=== PATIENT | female | born 1960 | race Caucasian/White ===

== ENCOUNTER 2017-08-14 01:01 | Emergency (ER) | payer MEDICARE ==
--- NOTE | 2017-08-14 01:33 | ERPHSYRPT ---
- History of Present Illness Time Seen by Provider: 08/14/17 01:22 Source: patient Exam Limitations: no limitations Patient Subjective Stated Complaint: per ems and pt, pt has passed out approx 3 times tonight. states she has not been feeling well and has not been eating or drinking well. for the past few days. states she has increased dizziness when standing up. c/o pain in her lt leg and hip from fall when passing out tonight. Triage Nursing Assessment: pt alert and oreinted, asnwers questions approp. pt arive per ambulance. total assist of 3 to transfer to stretcher. skin, cool and dry. respirations nonlabored with lungs cta. pupils equal and reactive. bilat upper and lower ext strength wnl. pt c/o pain in lt hip and leg, no bruising, shortening or rotation noted. Physician History: 57 y/o female with history of TIA currently on plavix brought in by ambulance for 3 syncopal episodes that occurred this morning. The patient states that she felt dizzy after getting up from a seated position and fell to the ground. The last time she hit her right thigh. Pt is not certain if she hit her head. Her son's believe that she may have had seizure episode. Pt admits to feeling weak lately, eating and drinking less as well as having nausea, cough, runny nose and sore throat. Pt describes the leg pain as sharp, constant, 7/10, worse with movement and pt has not taken any pain meds. Pt also admits to having left sided chest pain. Witnessed: by family Prior Episodes: multiple episodes today Timing/Duration: today Precipitating Factors: blurred vision, lightheadedness Context: standing Loss of Consciousness: unsure Charcter of event(s): collapsed Allergies/Adverse Reactions: ketorolac tromethamine [From Toradol] Adverse Reaction (Intermediate, Verified 08/14/17 01:16) Vomiting sulfamethoxazole [From Bactrim] Adverse Reaction (Intermediate, Verified 01:16) Blisters trimethoprim [From Bactrim] Adverse Reaction (Intermediate, Verified 08/14/17 01 :16) Blisters enoxaparin sodium [From Lovenox] Adverse Reaction (Verified 08/14/17 01:16) Hx Tetanus, Diphtheria Vaccination/Date Given: Yes Hx Influenza Vaccination/Date Given: No Hx Pneumococcal Vaccination/Date Given: No Immunizations Up to Date: Yes - Past Medical History Pertinent Past Medical History: Yes Neurological History: TIA ENT History: No Pertinent History Cardiac History: Angina, Coronary Artery Disease, Myocardial Infarction (SD), Peripheral Vascular Disease Respiratory History: No Pertinent History Endocrine Medical History: Diabetes Type I Musculoskeletal History: Arthritis GI Medical History: Gallbladder Disease History: No Pertinent History Psycho-Social History: Anxiety, Depression Female Reproductive Disorders: No Pertinent History - Past Surgical History Past Surgical History: Yes Neuro Surgical History: No Pertinent History Cardiac: CABG, Cardiac Stent Respiratory: No Pertinent History Gastrointestinal: Cholecystectomy Genitourinary: No Pertinent History Musculoskeletal: Other Female Surgical History: Section Other Surgical History: ROTATOR CUFF SURGERY, T&A - Social History Smoking Status: Former smoker Exposure to second hand smoke: Yes Drug Use: none Patient Lives Alone: No - Review of Systems Constitutional: Weakness, No Fever, No Chills Eyes: Vision Changes Ears, Nose, & Throat: No Symptoms Respiratory: Cough, No Dyspnea Cardiac: Chest Pain, Syncope, No Edema Abdominal/Gastrointestinal: Nausea, No Abdominal Pain, No Vomiting, No Diarrhea Genitourinary Symptoms: No Dysuria, No Frequency, No Hematuria Musculoskeletal: Myalgias, No Back Pain, No Neck Pain Skin: No Rash Neurological: Dizziness, No Focal Weakness, No Headache, No Sensory Changes, No Speech Changes Psychological: No Symptoms Endocrine: No Symptoms All Other Systems: Reviewed and Negative Physical Exam - Nursing Vital Signs Nursing Vital Signs: Initial Vital Signs Temperature 97.7 F 08/14/17 01:03 Pulse Rate 69 08/14/17 01:03 Respiratory Rate 18 08/14/17 01:03 Blood Pressure 113/51 08/14/17 01:03 O2 Sat by Pulse Oximetry 100 08/14/17 01:03 Pain Scale Pain Intensity 4 - [place] Coma Scale Best Eye Response ([place]): (4) open spontaneously Best Verbal Response ([place]): (5) oriented Best Motor Response ([place]): (6) obeys commands [place] Total: 15 - Physical Exam General Appearance: no apparent distress, alert Eye Exam: bilateral eye: PERRL, EOMI Ears, Nose, Throat Exam: normal ENT inspection, pharynx normal, moist mucous membranes Neck Exam: normal inspection, non-tender, supple, full range of motion Respiratory: normal breath sounds, lungs clear, No chest tenderness, No respiratory distress Cardiovascular: regular rate/rhythm, normal heart sounds, normal peripheral pulses, capillary refill <2 sec, No murmur, No pulse deficit Gastrointestinal: soft, normal bowel sounds, No tenderness, No distention, No mass Back Exam: normal inspection, normal range of motion, No CVA tenderness, No vertebral tenderness Extremity Exam: normal inspection, normal range of motion, pelvis stable, No tenderness Mental Status: alert, 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 x 3, 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 Exam: normal hearing, normal speech, PERRL, No facial droop Coordination/Gait: normal finger to nose Motor/Sensory: no sensory deficit, no pronator drift, weak motor strength LLE Skin Exam: normal color, warm, dry, No rash SpO2: 100 Oxygen Delivery: Nasal Cannula - Course Nursing assessment & vital signs reviewed: Yes EKG Interpreted by Me: RATE, NORMAL AXIS, NORMAL INTERVALS, NORMAL QRS, NORMAL ST-T Ordered Tests: Active Orders 24 hr Category Date Time Status Accucheck STAT Care 08/14/17 01:35 Active Contract Administrator STAT Care 08/14/17 01:36 Active EKG-ER Only STAT Care 08/14/17 01:35 Active Rouse [Catheter-[place] Rouse] STAT Care 08/14/17 04:32 Active IV Insertion STAT Care 08/14/17 01:35 Active Orthostatic Vital Signs STAT Care 08/14/17 01:35 Active CHEST 1 VIEW (PORTABLE) Stat Exams 08/14/17 01:[address] ANGIOGRAPHY NECK [CT] Stat Exams 08/14/17 03:05 Taken CTA HEAD W AND/OR WO CONTRAST [CT] Stat Exams 08/14/17 03:07 Taken FEMUR Stat Exams 08/14/17 03:10 Taken HEAD WITHOUT CONTRAST [CT] Stat Exams 08/14/17 01:36 Taken HIP UNI (2V) INCL PEL IF DONE Stat Exams 08/14/17 03:10 Taken CBC W DIFF Stat Lab 08/14/17 01:57 Completed CMP Stat Lab 08/14/17 01:57 Completed Manual Differential NC Stat Lab 08/14/17 01:57 Completed PROTIME WITH INR Stat Lab 08/14/17 01:57 Completed PTT Stat Lab 08/14/17 01:57 Completed TROPONIN Q3H Lab 08/14/17 01:57 Completed TROPONIN Q3H Lab 08/14/17 04:55 Completed TROPONIN Q3H Lab 08/14/17 07:45 Ordered TROPONIN Q3H Lab 08/14/17 10:45 Ordered TROPONIN Q3H Lab 08/14/17 13:45 Ordered UA W/RFX UR CULTURE Stat Lab 08/14/17 05:15 Completed Medication Summary Generic Name Dose Route Start Last Admin Trade Name Clare PRN Reason Stop Dose Admin Sodium Chloride 1,000 mls @ 100 mls/hr 08/14/17 01:45 08/14/17 01:58 Sodium Chloride 0.9% 1000 Ml IV 09/13/17 01:44 100 mls/hr .Q10H CARLOS Administration Discontinued Medications Generic Name Dose Route Start Last Admin Trade Name Clare PRN Reason Stop Dose Admin Hydromorphone HCl 1 mg 08/14/17 04:32 08/14/17 04:37 Hydromorphone 1 Mg/Ml Ampule IV 08/14/17 04:33 1 mg STAT ONE Administration Hydromorphone HCl Confirm 08/14/17 04:36 Hydromorphone 1 Mg/Ml Ampule Administered 08/14/17 04:37 Dose 1 mg .ROUTE .STK-MED ONE Insulin Human Regular 5 unit 08/14/17 04:32 08/14/17 04:37 Novolin R IV 08/14/17 04:33 5 unit STAT ONE Administration Insulin Human Regular Confirm 08/14/17 04:36 Novolin R Administered 08/14/17 04:37 Dose 5 unit .ROUTE .STK-MED ONE Morphine Sulfate 4 mg 08/14/17 01:37 08/14/17 01:58 Morphine Sulfate 4 Mg Inj IV 08/14/17 01:38 4 mg STAT ONE Administration Morphine Sulfate Confirm 08/14/17 01:55 Morphine Sulfate 4 Mg Inj Administered 08/14/17 01:56 Dose 4 mg .ROUTE .STK-MED ONE Morphine Sulfate 4 mg 08/14/17 03:07 08/14/17 03:18 Morphine Sulfate 4 Mg Inj IV 08/14/17 03:08 4 mg STAT ONE Administration Morphine Sulfate Confirm 08/14/17 03:15 Morphine Sulfate 4 Mg Inj Administered 08/14/17 03:16 Dose 4 mg .ROUTE .STK-MED ONE Ondansetron HCl 4 mg 08/14/17 01:37 08/14/17 01:59 Zofran 4 Mg/2 Ml Vial IV 08/14/17 01:38 4 mg STAT ONE Administration Ondansetron HCl Confirm 08/14/17 01:54 Zofran 4 Mg/2 Ml Vial Administered 08/14/17 01:55 Dose 4 mg .ROUTE .STK-MED ONE Oseltamivir Phosphate 75 mg 08/14/17 03:07 08/14/17 03:19 Tamiflu 75mg Capsule PO 08/14/17 03:08 75 mg STAT ONE Administration Oseltamivir Phosphate Confirm 08/14/17 03:15 Tamiflu 75mg Capsule Administered 08/14/17 03:16 Dose 75 mg PO .STK-MED ONE Lab/Rad Data: Laboratory Result Diagrams 08/14/17 01:57 08/14/17 01:57 Laboratory Results 08/14/17 08/14/17 08/14/17 Range/Units 05:15 04:55 01:57 WBC (4.0-10.5) K/mm3 RBC (4.1-5.4) M/mm3 Hgb (12.0-16.0) gm/dl Hct (35-47) % MCV (78-100) fl MCH (26-32) pg MCHC (32-36) g/dl RDW (11.5-14.0) % Plt Count (150-450) K/mm3 MPV (6-9.5) fl Segmented Neutrophils (36.0-66.0) % Band Neutrophils (0.0-2.0) % Lymphocytes (Manual) (24-44) % Monocytes (Manual) (0.0-12.0) % Differential Comment Atypical Lymphocytes % Platelet Estimate (NORMAL) INR (0.8-3.0) APTT (25.3-37.0) SECONDS Sodium (136-145) mEq/L Potassium (3.5-5.1) mEq/L Chloride (98-107) mEq/L Carbon Dioxide (21-32) mEq/L Anion Gap (5-15) MEQ/L BUN (9-20) mg/dL Creatinine (0.55-1.30) mg/dl Estimated GFR ML/MIN Glucose (70-110) MG/DL Calcium (8.5-10.1) mg/dL Total Bilirubin (0.2-1.0) mg/dL AST (15-37) U/L ALT (12-78) U/L Alkaline Phosphatase (46-116) U/L Troponin I < 0.017 (0.000-0.056) ng/ml Serum Total Protein (6.4-8.2) gm/dL Albumin (3.4-5.0) g/dL Ur Collection Type CLEAN CATCH Urine Color YELLOW (YELLOW) Urine Appearance CLEAR (CLEAR) Urine pH 5.0 (5-6) Ur Specific [place] 1.010 (1.005-1.025) Urine Protein NEGATIVE (Negative) Urine Ketones SMALL (NEGATIVE) Urine Blood NEGATIVE (0-5) Sudhakar/ul Urine Nitrite NEGATIVE (NEGATIVE) Urine Bilirubin NEGATIVE (NEGATIVE) Urine Urobilinogen NORMAL (0-1) mg/dL Ur Leukocyte Esterase NEGATIVE (NEGATIVE) Urine Culture Reflexed NO (NO) Urine Glucose 1000 (NEGATIVE) mg/dL Influenza Type A Ag POSITIVE (NEGATIVE) Influenza Type B Ag NEGATIVE (NEGATIVE) RSV (PCR) NEGATIVE (Negative) Specimen Received 08/14/2017 0520 08/14/17 08/14/17 08/14/17 Range/Units 01:57 01:57 01:57 WBC (4.0-10.5) K/mm3 RBC (4.1-5.4) M/mm3 Hgb (12.0-16.0) gm/dl Hct (35-47) % MCV (78-100) fl MCH (26-32) pg MCHC (32-36) g/dl RDW (11.5-14.0) % Plt Count (150-450) K/mm3 MPV (6-9.5) fl Segmented Neutrophils (36.0-66.0) % Band Neutrophils (0.0-2.0) % Lymphocytes (Manual) (24-44) % Monocytes (Manual) (0.0-12.0) % Differential Comment Atypical Lymphocytes % Platelet Estimate (NORMAL) INR 1.12 (0.8-3.0) APTT 34.4 (25.3-37.0) SECONDS Sodium 132 L (136-145) mEq/L Potassium 4.1 (3.5-5.1) mEq/L Chloride 98 (98-107) mEq/L Carbon Dioxide 26.1 (21-32) mEq/L Anion Gap 11.7 (5-15) MEQ/L BUN 20 (9-20) mg/dL Creatinine 1.05 (0.55-1.30) mg/dl Estimated GFR 58 ML/MIN Glucose 391 H (70-110) MG/DL Calcium 7.8 L (8.5-10.1) mg/dL Total Bilirubin 0.30 (0.2-1.0) mg/dL AST 152 H (15-37) U/L ALT 195 H (12-78) U/L Alkaline Phosphatase 163 H (46-116) U/L Troponin I < 0.017 (0.000-0.056) ng/ml Serum Total Protein 5.9 L (6.4-8.2) gm/dL Albumin 2.9 L (3.4-5.0) g/dL Ur Collection Type Urine Color (YELLOW) Urine Appearance (CLEAR) Urine pH (5-6) Ur Specific [place] (1.005-1.025) Urine Protein (Negative) Urine Ketones (NEGATIVE) Urine Blood (0-5) Sudhakar/ul Urine Nitrite (NEGATIVE) Urine Bilirubin (NEGATIVE) Urine Urobilinogen (0-1) mg/dL Ur Leukocyte Esterase (NEGATIVE) Urine Culture Reflexed (NO) Urine Glucose (NEGATIVE) mg/dL Influenza Type A Ag (NEGATIVE) Influenza Type B Ag (NEGATIVE) RSV (PCR) (Negative) Specimen Received 08/14/17 Range/Units 01:57 WBC 2.0 L (4.0-10.5) K/mm3 RBC 3.79 L (4.1-5.4) M/mm3 Hgb 11.2 L (12.0-16.0) gm/dl Hct 34.5 L (35-47) % MCV 91.0 (78-100) fl MCH 29.5 (26-32) pg MCHC 32.5 (32-36) g/dl RDW 16.6 H (11.5-14.0) % Plt Count 89 L (150-450) K/mm3 MPV 10.1 H (6-9.5) fl Segmented Neutrophils 64 (36.0-66.0) % Band Neutrophils 11 H (0.0-2.0) % Lymphocytes (Manual) 16 L (24-44) % Monocytes (Manual) 7 (0.0-12.0) % Differential Comment NORMAL Atypical Lymphocytes 2 % Platelet Estimate DECREASED (NORMAL) INR (0.8-3.0) APTT (25.3-37.0) SECONDS Sodium (136-145) mEq/L Potassium (3.5-5.1) mEq/L Chloride (98-107) mEq/L Carbon Dioxide (21-32) mEq/L Anion Gap (5-15) MEQ/L BUN (9-20) mg/dL Creatinine (0.55-1.30) mg/dl Estimated GFR ML/MIN Glucose (70-110) MG/DL Calcium (8.5-10.1) mg/dL Total Bilirubin (0.2-1.0) mg/dL AST (15-37) U/L ALT (12-78) U/L Alkaline Phosphatase (46-116) U/L Troponin I (0.000-0.056) ng/ml Serum Total Protein (6.4-8.2) gm/dL Albumin (3.4-5.0) g/dL Ur Collection Type Urine Color (YELLOW) Urine Appearance (CLEAR) Urine pH (5-6) Ur Specific [place] (1.005-1.025) Urine Protein (Negative) Urine Ketones (NEGATIVE) Urine Blood (0-5) Sudhakar/ul Urine Nitrite (NEGATIVE) Urine Bilirubin (NEGATIVE) Urine Urobilinogen (0-1) mg/dL Ur Leukocyte Esterase (NEGATIVE) Urine Culture Reflexed (NO) Urine Glucose (NEGATIVE) mg/dL Influenza Type A Ag (NEGATIVE) Influenza Type B Ag (NEGATIVE) RSV (PCR) (Negative) Specimen Received - Progress Progress: improved Progress Note: 08/14/17 05:39 The patient has a left femoral subcapital fracture. The CT scan head w/o contrast is negative and the CTA head and neck does not show any acute findings. The patient has low white count, low platelet and elevation in AST/ ALT and alk phos. Pt was also given NS fluids and regular insulin for elevated blood glucose of 389. Pt is influenza A positive and was given a dose of tamiflu. Since the patient will need to be cleared by cardiology, patient will need orthopedic evaluation. Pt has been accepted by ER physician, Dr Viera. 08/14/17 05:48 - Departure Time of Disposition: 05:49 Departure Disposition: Transfer Clinical Impression: Influenza A Subcapital fracture of femur Qualifiers: Encounter type: initial encounter Fracture type: closed Laterality: left Qualified Code(s): S72.012A - Unspecified intracapsular fracture of left femur, initial encounter for closed fracture Syncope Qualifiers: Syncope type: unspecified Qualified Code(s): R55 - Syncope and collapse Condition: Fair Critical Care Time: Yes Critical Care Time(excluding separately billable procedures): 75-104 minutes Referrals: DELORES CORREIA MD [Primary Care Provider] -
[2017-08-14] MEDS ORDERED: Zofran 4 MG/2 ML VIAL ONE (01:54)
[2017-08-14] MEDS ORDERED: MORPHINE SULFATE 4 MG INJ ONE ×2 (01:55→03:15)
[2017-08-14] MEDS ORDERED: Sodium Chloride 0.9% 1000 ML 1,000 ML ONE (01:55)
[2017-08-14] MEDS: MORPHINE SULFATE 4 MG INJ IV ONE ×2 (01:58→03:18)
[2017-08-14] MEDS: Sodium Chloride 0.9% 1000 ML 1,000 ML IV SCH (01:58)
[2017-08-14] MEDS: Zofran 4 MG/2 ML VIAL IV ONE (01:59)
[2017-08-14 02:02] LABS: Granulocyte Absolute (ANC) 1.36 (1.4-6.9); Hematocrit 34.5 % (35-47); Hemoglobin 11.2 gm/dl (12.0-16.0); Mean Corpuscular Hgb Concent. 32.5 g/dl (32-36); Mean Platelet Volume 10.1 fl (6-9.5); Platelet Count 89 K/mm3 (150-450); Red Blood Count 3.79 M/mm3 (4.1-5.4); Red Cell Distribution Width 16.6 % (11.5-14.0)
[2017-08-14 02:08] LABS: Mean Corpuscular Hemoglobin 29.5 pg (26-32)
[2017-08-14 02:29] LABS: ATYPICAL LYMPHS 2 %; BAND 11 % (0.0-2.0); Lymphocytes 16 % (24-44); Monocyte 7 % (0.0-12.0); Neutrophils 64 % (36.0-66.0); Total Cells Counted 100
[2017-08-14 02:30] LABS: Platelet Estimate DECREASED (NORMAL)
[2017-08-14 02:33] LABS: ALBUMIN 2.9 g/dL (3.4-5.0); ANION GAP 11.7 MEQ/L (5-15); BILIRUBIN,TOTAL 0.3 mg/dL (0.2-1.0); Calcium 7.8 mg/dL (8.5-10.1); Carbon Dioxide 26.1 mEq/L (21-32); Creatinine 1 1.05 mg/dl (0.55-1.30); Potassium 4.1 mEq/L (3.5-5.1); Total Protein 5.9 gm/dL (6.4-8.2)
[2017-08-14 02:59] LABS: INR 1.12 (0.8-3.0)
[2017-08-14 03:02] LABS: PTT 34.4 SECONDS (25.3-37.0)
[2017-08-14 03:04] LABS: INFLUENZA A POSITIVE (NEGATIVE); INFLUENZA B NEGATIVE (NEGATIVE); RESPIRATORY SYNCTIAL VIRUS NEGATIVE (Negative)
[2017-08-14] MEDS ORDERED: Tamiflu 75MG Capsule PO ONE (03:15)
[2017-08-14] MEDS: Tamiflu 75MG Capsule PO ONE (03:19)
[2017-08-14] MEDS ORDERED: NovoLIN R ONE (04:36)
[2017-08-14] MEDS ORDERED: Hydromorphone 1 mg/ml Ampule ONE ×2 (04:36→06:40)
[2017-08-14] MEDS: Hydromorphone 1 mg/ml Ampule IV ONE ×2 (04:37→06:42)
[2017-08-14] MEDS: NovoLIN R IV ONE (04:37)
[2017-08-14 05:20] LABS: Appearance CLEAR (CLEAR); Bilirubin NEGATIVE (NEGATIVE); Blood NEGATIVE Ery/ul (0-5); Glucose 1000 mg/dL (NEGATIVE); Ketones SMALL (NEGATIVE); Leukocyte Esterase NEGATIVE (NEGATIVE); Nitrite NEGATIVE (NEGATIVE); Protein,Urine Dip NEGATIVE (Negative); Urobilinogen NORMAL mg/dL (0-1)
[2017-08-14 06:32] VITALS: O2SAT 99
[2017-08-14 07:34] VITALS: BP 122/56; PULSE 91
--- NOTE | 2017-08-14 08:46 | XRAY ---
Indication: Chest pain. Fall following syncope. Comparison: January 10, 2015. AP chest remains clear. Heart is not enlarged again demonstrating previous CABG surgery. Normal vascularity. Bony thorax intact again with mild osteopenia, minimal degenerative changes, and distal right clavicle resection. Impression: Stable nonacute chest with chronic features.
--- NOTE | 2017-08-14 09:04 | XRAY ---
Indication: Pain following fall. Comparison: None 2 views of the left hip demonstrates mild osteopenia, single vascular clip, and scattered vascular calcifications. Femur demonstrates lateral subcapital cortical deformity concerning for fracture of uncertain chronicity. No other bony, articular, or soft tissue abnormalities. Comment: Preliminary interpretation was made by [facility]. No critical discrepancy.
--- NOTE | 2017-08-14 09:06 | XRAY ---
Indication: Pain following fall. Comparison: None 2 views of the left femur demonstrates mild osteopenia, scattered vascular clip, and scattered vascular calcifications. Lateral subcapital cortical deformity concerning for fracture of uncertain chronicity. No other bony, articular, or soft tissue abnormalities. Comment: Preliminary interpretation was made by [facility]. No critical discrepancy.
--- NOTE | 2017-08-14 09:06 | XRAY ---
Indication: Left head injury following fall. Syncopal episode 2. Seizure. Dizziness. Multiple contiguous axial images obtained through the head without contrast. Comparison: None Normal-appearing brain parenchyma, ventricles, and bony calvarium. Visualized paranasal sinuses and mastoid air cells are clear. Impression: Normal CT head without contrast exam. Comment: Preliminary interpretation was made by [facility]. No discrepancy. CTDI 51.98
--- NOTE | 2017-08-14 09:11 | XRAY ---
Indication: Syncopal episode 2. Seizure. Dizziness. Conventional contrast enhanced CTA neck was performed using 95 cc Isovue 370 contrast. Two-dimensional sagittal and coronal reformatted images obtained. Comparison: None Visualized aortic arch is normal with normal branching right brachiocephalic, left common carotid, and left subclavian arteries. Left and right common carotid arteries are normal in course and caliber without critical stenosis, obstruction, or AV malformation. Right carotid bulb demonstrates minimal eccentric calcified plaquing. Remaining left carotid bulb and both internal/external carotid arteries are normal in CTA appearance. Vertebral arteries are bilaterally normal in course and caliber without critical stenosis/obstruction, or AV malformation. Venous system and soft tissues including lung apices are unremarkable. Impression: Minimal right carotid bulb calcifications. Remaining CTA neck is negative. Comment: Preliminary interpretation was made by [facility]. No discrepancy. CTDI 83.92
--- NOTE | 2017-08-14 09:16 | XRAY ---
Indication: Syncopal episode 2. Seizure. Dizziness. Conventional contrast enhanced CTA head was performed using 95 cc Isovue 370 contrast. Two-dimensional sagittal and coronal reformatted images obtained. Comparison: None Distal internal carotid arteries are bilaterally symmetric with very minimal calcifications seen in the parasellar segments. No critical stenosis, obstruction, or AV malformation. Normal carotid terminus with normal branching A1 and M1 segments. More distal anterior and middle cerebral arteries are normal in CTA appearance. Basilar artery is normal in CTA appearance with normal branching posterior cerebral and anterior inferior cerebellar arteries bilaterally. There is no abnormal enhancing intra-or extra-axial mass. Venous drainage unremarkable. CT head reported separately. Impression: Minimal bilateral parasellar internal carotid artery calcifications without critical stenosis/obstruction. Remaining CTA head is negative. Comment: Preliminary interpretation was made by [facility]. No critical discrepancy. CTDI 83.92
== END 2017-08-14 07:58 | disposition short-term general hospital (02) ==
LOC: ED 01:01
DX: J09.X2 Influenza due to identified novel influenza A virus with other respiratory manifestations (principal); S72.012A Unspecified intracapsular fracture of left femur, initial encounter for closed fracture; R07.9 Chest pain, unspecified; R55 Syncope and collapse; W08.XXXA Fall from other furniture, initial encounter; Z86.73 Personal history of transient ischemic attack (TIA), and cerebral infarction without residual deficits; I25.2 Old myocardial infarction
CPT/HCPCS: 36415; 51702; 70450; 70496; 70498; 71045; 73502; 73552; 80053; 81002; 82962; 84484; 85025; 85610; 85730; 87631; 93005; 93041; 96360; 96361; 96374; 96375; 96376; 99285; J1170; J2270; J2405; A9270-GY

== ENCOUNTER 2020-09-23 10:43 | Observation (INO) | payer MEDICARE ==
[2020-09-23 13:09] VITALS: O2SAT 100
[2020-09-23 13:49] LABS: INFLUENZA A NEGATIVE (NEGATIVE); INFLUENZA B NEGATIVE (NEGATIVE); RESPIRATORY SYNCTIAL VIRUS NEGATIVE (Negative)
[2020-09-23] MEDS ORDERED: Sodium Chloride 0.9% 1000 ML 1,000 ML IV SCH (14:00)
[2020-09-23] MEDS ORDERED: PHARMACY DOSING REQUEST MC ONE (14:03)
[2020-09-23] MEDS ORDERED: MORPHINE SULFATE 2 MG INJ IV PRN (14:05)
[2020-09-23] MEDS ORDERED: HUMULIN R SQ PRN (14:07)
[2020-09-23 14:48] LABS: Absolute Neutrophil Ct (ANC) 5.83 (1.4-6.9); BASOPHIL % 0.3 % (0.0-0.4); Basophil (Absolute #) 0.02 (0-0.4); Eosinophil % 2.2 % (0.00-5.0); Eosinophil (Absolute #) 0.17 (0-0.5); Hematocrit 39.6 % (35-47); Hemoglobin 12.6 gm/dl (12.0-16.0); Lymphocyte (Absolute #) 1.37 (1.0-4.6); Lymphocytes % 17.8 % (24.0-44.0); Mean Cell Volume 92.7 fl (78-100); Mean Corpuscular Hemoglobin 29.5 pg (26-32); Mean Corpuscular Hgb Concent. 31.8 g/dl (32-36); Mean Platelet Volume 9.7 fl (7.5-11.0); Monocytes % 3.9 % (0.0-12.0); Neutrophil % 75.8 % (36.0-66.0); Platelet Count 213 K/mm3 (150-450); Red Blood Count 4.27 M/mm3 (4.1-5.4); Red Cell Distribution Width 14.5 % (11.5-14.0); White Blood Count 7.7 K/mm3 (4.0-10.5)
[2020-09-23 14:57] LABS: ALBUMIN 4.4 g/dL (3.5-5.0); ALKALINE PHOSPHATASE 133 U/L (38-126); ANION GAP 12.8 MEQ/L (5-15); BLOOD UREA NITROGEN 12 mg/dL (7-17); CHLORIDE 99 mmol/L (98-107); Calcium 9.5 mg/dL (8.4-10.2); Carbon Dioxide 27 mmol/L (22-30); Creatinine 1 0.53 mg/dL (0.52-1.04); EST GLOMERULAR FILTRATION RATE > 60.0 ML/MIN; Glucose 244 mg/dL (74-106); Potassium 4.3 mmol/L (3.5-5.1); SGOT/AST 17 U/L (14-36); SGPT/ALT 11 U/L (0-35); SODIUM 135 mmol/L (137-145); Total Protein 8.5 g/dL (6.3-8.2)
[2020-09-23] MEDS ORDERED: NON-FORMULARY ITEM (Gabapentin [Gabapentin] 800 MG) PO SCH (15:00)
[2020-09-23] MEDS ORDERED: Zosyn 3.375 GM Vial 3.375 GM in Sodium Chloride 100ML MINI-BAG PLUS 100 ML IV SCH (15:00)
[2020-09-23] MEDS ORDERED: Neurontin 400 MG PO SCH (15:00)
--- NOTE | 2020-09-23 15:23 | XRAY ---
Indication: Cough. Comparison: August 14, 2017. PA/lateral chest remains hyperinflated and clear. Heart is not enlarged again with CABG surgery. Bony thorax intact again with mild osteopenia, degenerative changes, and distal right clavicle resection. Impression: Continued nonacute chest with chronic features.
[2020-09-23] MEDS ORDERED: MORPHINE SULFATE 4 MG INJ IV PRN (16:15)
[2020-09-23 16:32] VITALS: BP 146/80; PULSE 104
[2020-09-23] MEDS ORDERED: Ativan 2 MG/1 ML VIAL IV ONE (17:35)
--- NOTE | 2020-09-23 21:59 | XRAY ---
Indication: Bilateral feet/cocaine. Two-dimensional sonogram and color Doppler imaging of the major arteries of the left and right leg was performed. Comparison: None Examination of the right leg demonstrates minimal scattered arteriosclerotic disease in the common femoral, superficial femoral, and popliteal arteries without critical stenosis/obstruction. Visualized posterior tibial and dorsal pedal arteries are attenuated without obstruction. Arterial waveforms are multiphasic throughout the right leg. Right arm brachial pressure is 1:30. Right ankle pressure is 176. Ankle brachial index is 1.23, normal. Examination of the left leg demonstrates minimal scattered disease in the common femoral, superficial femoral, popliteal, posterior tibial, and dorsal pedal arteries without critical stenosis/obstruction. Arterial waveforms are multiphasic throughout the left leg. Left arm brachial pressure is 143. Left ankle pressure is 151. Ankle brachial index is 1.1, normal. Impression: 1. Both legs demonstrates scattered arteriosclerotic disease without critical stenosis/obstruction. 2. Left and right ABIs are normal.
[2020-09-23] MEDS ORDERED: Lantus Insulin SQ SCH (22:00)
[2020-09-23] MEDS ORDERED: INSULIN DEGLUDEC 30 UNIT PO SCH (22:00)
[2020-09-24] MEDS ORDERED: PLAVIX 75 MG Tablet PO SCH (10:00)
[2020-09-24] MEDS ORDERED: Protonix 40MG Tablet PO SCH (10:00)
--- NOTE | 2020-09-27 19:00 | PCM.SSS ---
History of Present Illness - Chief Complaint Chief Complaint: severe pain in left foot for 1 week History of Present Illness: is a 60 year old female admitted with severe bilateral foot pain started 2 weeks ago. c/o redness on both feet. severe pain on light touch - Review of Systems Constitutional: No Fever, No Chills Eyes: No Symptoms Ears, Nose, & Throat: No Symptoms Respiratory: No Cough, No Short Of Breath Cardiac: No Chest Pain, No Edema, No Syncope Abdominal/Gastrointestinal: No Abdominal Pain, No Nausea, No Vomiting, No Diarrhea Genitourinary Symptoms: No Dysuria Musculoskeletal: No Back Pain, No Neck Pain Skin: Cellulitis, No Rash Neurological: No Dizziness, No Focal Weakness, No Sensory Changes Psychological: No Symptoms Endocrine: No Symptoms Hematologic/Lymphatic: No Symptoms Immunological/Allergic: No Symptoms Medications & Allergies Home Medications: Home Medication List Clopidogrel Bisulfate 75 mg [PLAVIX 75 MG Tablet] 75 mg PO DAILY 09/23/20 [History Confirmed 09/23/20] Gabapentin 800 mg PO TID 09/23/20 [History Confirmed 09/23/20] Insulin Aspart [Novolog] 100 unit SQ UD 09/23/20 [History Confirmed 09/23/20] Insulin Degludec [Tresiba Flextouch U-200] 30 units PO HS 09/23/20 [History Confirmed 09/23/20] PANTOPRAZOLE 40 mg Tablet [Protonix 40MG Tablet] 40 mg PO QAM 09/23/20 [History Confirmed 09/23/20] Allergies/Adverse Reactions: Allergies Allergy/AdvReac Type Severity Reaction Status Date / Time ketorolac tromethamine AdvReac Intermediate Vomiting Verified 08/14/17 01:16 [From Toradol] sulfamethoxazole AdvReac Intermediate Blisters Verified 08/14/17 01:16 [From Bactrim] trimethoprim [From Bactrim] AdvReac Intermediate Blisters Verified 08/14/17 01:16 enoxaparin sodium AdvReac Verified 08/14/17 01:16 [From Lovenox] - Past Medical History Past Medical History: Yes Neurological History: TIA ENT History: Cataracts, Glaucoma Cardiac History: Angina, Coronary Artery Disease, Myocardial Infarction (SC), Peripheral Vascular Disease Respiratory History: No Pertinent History Endocrine Medical History: Diabetes Type I Musculoskelatal History: Arthritis GI Medical History: Gallbladder Disease, Irritable Bowel History: No Pertinent History Pyscho-Social History: Anxiety, Depression Reproductive Disorders: No Pertinent History Comment: anemia - Female History Are you now?: No - Past Surgical History Past Surgical History: Yes Neuro Surgical History: No Pertinent History Cardiac History: CABG, Cardiac Stent Respiratory Surgery: No Pertinent History GI Surgical History: Cholecystectomy Genitourinary Surgical Hx: No Pertinent History Musculskeletal Surgical Hx: Other Female Surgical History: Section Other Surgical History: ROTATOR CUFF SURGERY, T&A - Social History Smoking Status: Current every day smoker How long have you smoked: 30 yrs Exposure to second hand smoke: Yes Alcohol: None Drug Use: none - Physical Exam General Appearance: no apparent distress, alert Neurologic Exam: alert, oriented x 3, cooperative, normal mood/affect, nml cerebellar function, nml station & gait, sensation nml, No motor deficits Eye Exam: PERRL/EOMI, eyes nml inspection Ears, Nose, Throat Exam: normal ENT inspection, TMs normal, pharynx normal, moist mucous membranes Neck Exam: normal inspection, non-tender, supple, full range of motion Respiratory Exam: normal breath sounds, lungs clear, No respiratory distress Cardiovascular Exam: regular rate/rhythm, normal heart sounds, normal peripheral pulses Gastrointestinal/Abdomen Exam: soft, normal bowel sounds, No tenderness, No mass Back Exam: normal inspection, normal range of motion, No CVA tenderness, No vertebral tenderness Extremity Exam: normal inspection, normal range of motion, pelvis stable, inflammation, pedal edema, swelling, tenderness Skin Exam: pale, No rash Lymphatic Exam: No adenopathy Results - Labs Lab/Micro Results: Microbiology 09/23/20 14:38 Blood Culture - Preliminary Blood NO GROWTH TO DATE 09/23/20 14:34 Blood Culture - Preliminary Blood NO GROWTH TO DATE - Radiology Impressions Radiology Exams & Impressions: 0015 US/ARTERIAL BILAT LOWER EXTREMITY Indication: Bilateral feet/cocaine. Two-dimensional sonogram and color Doppler imaging of the major arteries of the left and right leg was performed. Comparison: None Examination of the right leg demonstrates minimal scattered arteriosclerotic disease in the common femoral, superficial femoral, and popliteal arteries without critical stenosis/obstruction. Visualized posterior tibial and dorsal pedal arteries are attenuated without obstruction. Arterial waveforms are multiphasic throughout the right leg. Right arm brachial pressure is 1:30. Right ankle pressure is 176. Ankle brachial index is 1.23, normal. Examination of the left leg demonstrates minimal scattered disease in the common femoral, superficial femoral, popliteal, posterior tibial, and dorsal pedal arteries without critical stenosis/obstruction. Arterial waveforms are multiphasic throughout the left leg. Left arm brachial pressure is 143. Left ankle pressure is 151. Ankle brachial index is 1.1, normal. Impression: 1. Both legs demonstrates scattered arteriosclerotic disease without critical stenosis/obstruction. 2. Left and right ABIs are normal. Assessment/Plan (1) Bilateral lower leg cellulitis Status: Acute Assessment & Plan: Chief Complaint Diagnosis Peripheral Vascular Disease Allergies Allergy/AdvReac Type Severity Reaction Status Date / Time ketorolac tromethamine AdvReac Intermediate Vomiting Verified 08/14/17 01:16 [From Toradol] sulfamethoxazole AdvReac Intermediate Blisters Verified 08/14/17 01:16 [From Bactrim] trimethoprim [From Bactrim] AdvReac Intermediate Blisters Verified 08/14/17 01:16 enoxaparin sodium AdvReac Verified 08/14/17 01:16 [From Lovenox] Home Medications Medication Instructions Recorded Confirmed Last Taken Type Clopidogrel Bisulfate 75 mg 75 mg PO DAILY 09/23/20 09/23/20 09/23/20 History [PLAVIX 75 MG Tablet] Gabapentin 800 mg PO TID 09/23/20 09/23/20 09/23/20 History Insulin Aspart [Novolog] 100 unit SQ UD 09/23/20 09/23/20 09/23/20 History Insulin Degludec [Tresiba 30 units PO HS 09/23/20 09/23/20 09/22/20 History Flextouch U-200] PANTOPRAZOLE 40 mg Tablet 40 mg PO QAM 09/23/20 09/23/20 09/23/20 History [Protonix 40MG Tablet] Current Medications Discontinued Medications Generic Name Dose Route Start Last Admin Trade Name Freq PRN Reason Stop Dose Admin Clopidogrel Bisulfate 75 mg 09/24/20 10:00 Plavix 75 Mg Tablet PO 10/24/20 09:59 DAILY CARLOS Gabapentin 800 mg 09/23/20 15:00 09/23/20 15:17 Neurontin 400 Mg PO 10/23/20 14:59 800 mg TID CARLOS Administration Sodium Chloride 1,000 mls @ 100 mls/hr 09/23/20 14:00 09/23/20 14:34 Sodium Chloride 0.9% 1000 Ml IV 10/23/20 13:59 100 mls/hr .Q10H CARLOS Administration Piperacillin Sod/Tazobactam 100 mls @ 200 mls/hr 09/23/20 15:00 09/23/20 15:17 Sod 3.375 gm/ Sodium Chloride IV 10/23/20 14:59 200 mls/hr Q6H CARLOS Administration Insulin Glargine 30 unit 09/23/20 22:00 Lantus Insulin SQ 10/23/20 21:59 HS CARLOS Insulin Human Regular 0 unit 09/23/20 14:07 09/23/20 14:34 Humulin R SQ 10/23/20 14:06 5 unit UD PRN Administration HYPERGLYCEMIA Lorazepam 1 mg 09/23/20 17:35 09/23/20 17:40 Ativan 2 Mg/1 Ml Vial IV 09/23/20 17:36 1 mg STAT ONE Administration Morphine Sulfate 2 mg 09/23/20 14:05 09/23/20 14:33 Morphine Sulfate 2 Mg Inj IV 09/28/20 14:04 2 mg Q4H PRN PRN Administration PAIN Morphine Sulfate 4 mg 09/23/20 16:15 09/23/20 16:25 Morphine Sulfate 4 Mg Inj IV 09/28/20 16:14 4 mg Q2H PRN PRN Administration PAIN Non-Formulary Medication 1 each 09/23/20 14:03 Pharmacy Dosing Request 09/23/20 14:04 STAT ONE Pantoprazole Sodium 40 mg 09/24/20 10:00 Protonix 40mg Tablet PO 10/24/20 09:59 [facility] Code(s): L03.116 - CELLULITIS OF LEFT LOWER LIMB; L03.115 - CELLULITIS OF RIGHT LOWER LIMB (2) Peripheral vascular disease due to secondary diabetes Status: Acute Assessment & Plan: Laboratory Results 09/23/20 09/23/20 09/23/20 Range/Units 15:36 14:34 14:34 WBC (4.0-10.5) K/mm3 RBC (4.1-5.4) M/mm3 Hgb (12.0-16.0) gm/dl Hct (35-47) % MCV (78-100) fl MCH (26-32) pg MCHC (32-36) g/dl RDW (11.5-14.0) % Plt Count (150-450) K/mm3 MPV (7.5-11.0) fl Gran % (36.0-66.0) % Eos # (Auto) (0-0.5) Absolute Lymphs (auto) (1.0-4.6) Absolute Monos (auto) (0.0-1.3) Lymphocytes % (24.0-44.0) % Monocytes % (0.0-12.0) % Eosinophils % (0.00-5.0) % Basophils % (0.0-0.4) % Absolute Granulocytes (1.4-6.9) Basophils # (0-0.4) Sodium 135 L (137-145) mmol/L Potassium 4.3 (3.5-5.1) mmol/L Chloride 99 (98-107) mmol/L Carbon Dioxide 27 (22-30) mmol/L Anion Gap 12.8 (5-15) MEQ/L BUN 12 (7-17) mg/dL Creatinine 0.53 (0.52-1.04) mg/dL Estimated GFR > 60.0 ML/MIN Glucose 244 H (74-106) mg/dL POC Glucometer 214 H (74 to 106) mg/dL Lactic Acid (0.4-2.0) Uric Acid 3.8 (2.6-6.0) mg/dL Calcium 9.5 (8.4-10.2) mg/dL Total Bilirubin 0.40 (0.2-1.3) mg/dL AST 17 (14-36) U/L ALT 11 (0-35) U/L Alkaline Phosphatase 133 H (38-126) U/L Serum Total Protein 8.5 H (6.3-8.2) g/dL Albumin 4.4 (3.5-5.0) g/dL Influenza Type A Ag (NEGATIVE) Influenza Type B Ag (NEGATIVE) RSV (PCR) (Negative) SARS-CoV-2 (PCR) (NEGATIVE) 09/23/20 09/23/20 09/23/20 Range/Units 14:34 14:24 14:03 WBC 7.7 (4.0-10.5) K/mm3 RBC 4.27 (4.1-5.4) M/mm3 Hgb 12.6 (12.0-16.0) gm/dl Hct 39.6 (35-47) % MCV 92.7 (78-100) fl MCH 29.5 (26-32) pg MCHC 31.8 L (32-36) g/dl RDW 14.5 H (11.5-14.0) % Plt Count 213 (150-450) K/mm3 MPV 9.7 (7.5-11.0) fl Gran % 75.8 H (36.0-66.0) % Eos # (Auto) 0.17 (0-0.5) Absolute Lymphs (auto) 1.37 (1.0-4.6) Absolute Monos (auto) 0.30 (0.0-1.3) Lymphocytes % 17.8 L (24.0-44.0) % Monocytes % 3.9 (0.0-12.0) % Eosinophils % 2.2 (0.00-5.0) % Basophils % 0.3 (0.0-0.4) % Absolute Granulocytes 5.83 (1.4-6.9) Basophils # 0.02 (0-0.4) Sodium (137-145) mmol/L Potassium (3.5-5.1) mmol/L Chloride (98-107) mmol/L Carbon Dioxide (22-30) mmol/L Anion Gap (5-15) MEQ/L BUN (7-17) mg/dL Creatinine (0.52-1.04) mg/dL Estimated GFR ML/MIN Glucose (74-106) mg/dL POC Glucometer 225 H (74 to 106) mg/dL Lactic Acid 1.1 (0.4-2.0) Uric Acid (2.6-6.0) mg/dL Calcium (8.4-10.2) mg/dL Total Bilirubin (0.2-1.3) mg/dL AST (14-36) U/L ALT (0-35) U/L Alkaline Phosphatase (38-126) U/L Serum Total Protein (6.3-8.2) g/dL Albumin (3.5-5.0) g/dL Influenza Type A Ag (NEGATIVE) Influenza Type B Ag (NEGATIVE) RSV (PCR) (Negative) SARS-CoV-2 (PCR) (NEGATIVE) 09/23/20 Range/Units 13:01 WBC (4.0-10.5) K/mm3 RBC (4.1-5.4) M/mm3 Hgb (12.0-16.0) gm/dl Hct (35-47) % MCV (78-100) fl MCH (26-32) pg MCHC (32-36) g/dl RDW (11.5-14.0) % Plt Count (150-450) K/mm3 MPV (7.5-11.0) fl Gran % (36.0-66.0) % Eos # (Auto) (0-0.5) Absolute Lymphs (auto) (1.0-4.6) Absolute Monos (auto) (0.0-1.3) Lymphocytes % (24.0-44.0) % Monocytes % (0.0-12.0) % Eosinophils % (0.00-5.0) % Basophils % (0.0-0.4) % Absolute Granulocytes (1.4-6.9) Basophils # (0-0.4) Sodium (137-145) mmol/L Potassium (3.5-5.1) mmol/L Chloride (98-107) mmol/L Carbon Dioxide (22-30) mmol/L Anion Gap (5-15) MEQ/L BUN (7-17) mg/dL Creatinine (0.52-1.04) mg/dL Estimated GFR ML/MIN Glucose (74-106) mg/dL POC Glucometer (74 to 106) mg/dL Lactic Acid (0.4-2.0) Uric Acid (2.6-6.0) mg/dL Calcium (8.4-10.2) mg/dL Total Bilirubin (0.2-1.3) mg/dL AST (14-36) U/L ALT (0-35) U/L Alkaline Phosphatase (38-126) U/L Serum Total Protein (6.3-8.2) g/dL Albumin (3.5-5.0) g/dL Influenza Type A Ag NEGATIVE (NEGATIVE) Influenza Type B Ag NEGATIVE (NEGATIVE) RSV (PCR) NEGATIVE (Negative) SARS-CoV-2 (PCR) NEGATIVE (NEGATIVE) Code(s): E13.51 - OTH DIABETES W DIABETIC PERIPHERAL ANGIOPATHY W/O [facility] Summary - Hospital Course Hospital Course: Chief Complaint Diagnosis Peripheral Vascular Disease Allergies Allergy/AdvReac Type Severity Reaction Status Date / Time ketorolac tromethamine AdvReac Intermediate Vomiting Verified 08/14/17 01:16 [From Toradol] sulfamethoxazole AdvReac Intermediate Blisters Verified 08/14/17 01:16 [From Bactrim] trimethoprim [From Bactrim] AdvReac Intermediate Blisters Verified 08/14/17 01:16 enoxaparin sodium AdvReac Verified 08/14/17 01:16 [From Lovenox] Home Medications Medication Instructions Recorded Confirmed Last Taken Type Clopidogrel Bisulfate 75 mg 75 mg PO DAILY 09/23/20 09/23/20 09/23/20 History [PLAVIX 75 MG Tablet] Gabapentin 800 mg PO TID 09/23/20 09/23/20 09/23/20 History Insulin Aspart [Novolog] 100 unit SQ UD 09/23/20 09/23/20 09/23/20 History Insulin Degludec [Tresiba 30 units PO HS 09/23/20 09/23/20 09/22/20 History Flextouch U-200] PANTOPRAZOLE 40 mg Tablet 40 mg PO QAM 09/23/20 09/23/20 09/23/20 History [Protonix 40MG Tablet] Current Medications Discontinued Medications Generic Name Dose Route Start Last Admin Trade Name Freq PRN Reason Stop Dose Admin Clopidogrel Bisulfate 75 mg 09/24/20 10:00 Plavix 75 Mg Tablet PO 10/24/20 09:59 DAILY CARLOS Gabapentin 800 mg 09/23/20 15:00 09/23/20 15:17 Neurontin 400 Mg PO 10/23/20 14:59 800 mg TID CARLOS Administration Sodium Chloride 1,000 mls @ 100 mls/hr 09/23/20 14:00 09/23/20 14:34 Sodium Chloride 0.9% 1000 Ml IV 10/23/20 13:59 100 mls/hr .Q10H CARLOS Administration Piperacillin Sod/Tazobactam 100 mls @ 200 mls/hr 09/23/20 15:00 09/23/20 15:17 Sod 3.375 gm/ Sodium Chloride IV 10/23/20 14:59 200 mls/hr Q6H CARLOS Administration Insulin Glargine 30 unit 09/23/20 22:00 Lantus Insulin SQ 10/23/20 21:59 [facility] Insulin Human Regular 0 unit 09/23/20 14:07 09/23/20 14:34 Humulin R SQ 10/23/20 14:06 5 unit UD PRN Administration HYPERGLYCEMIA Lorazepam 1 mg 09/23/20 17:35 09/23/20 17:40 Ativan 2 Mg/1 Ml Vial IV 09/23/20 17:36 1 mg STAT ONE Administration Morphine Sulfate 2 mg 09/23/20 14:05 09/23/20 14:33 Morphine Sulfate 2 Mg Inj IV 09/28/20 14:04 2 mg Q4H PRN PRN Administration PAIN Morphine Sulfate 4 mg 09/23/20 16:15 09/23/20 16:25 Morphine Sulfate 4 Mg Inj IV 09/28/20 16:14 4 mg Q2H PRN PRN Administration PAIN Non-Formulary Medication 1 each 09/23/20 14:03 Pharmacy Dosing Request [facility] 09/23/20 14:04 STAT ONE Pantoprazole Sodium 40 mg 09/24/20 10:00 Protonix 40mg Tablet PO 10/24/20 09:59 [facility] Patient signed AMA - Vitals & Intake/Output Vital Signs: Vital Signs Temperature 97.9 F 09/23/20 16:00 Pulse Rate 104 H 09/23/20 16:00 Respiratory Rate 20 09/23/20 16:00 Blood Pressure 146/80 09/23/20 16:00 O2 Sat by Pulse Oximetry 100 09/23/20 16:00 - Lab Result Diagrams: 09/23/20 14:34 09/23/20 14:34 Micro Results-Entire Visit: Microbiology 09/23/20 14:38 Blood Culture - Preliminary Blood NO GROWTH TO DATE 09/23/20 14:34 Blood Culture - Preliminary Blood NO GROWTH TO DATE - Procedures and Test Procedures and Tests throughout Hospitalization: Therapy Orders & Screens 09/23/20 13:41 OT Screen per Nursing Assess ONCE Comment: Protocol Order Physician Instructions: Greater than 3 points order OT Admission Screening Reason For Exam: Triggered on Admission Diagnosis: cellulitis Open Wound/Cellutlitis/Pressure Ulcers: Yes Acute Fx/ORIF/Change in wt bearing status: Yes Severe MUSCULOSKELETAL pain: Yes ADL Dysfunction: No Acute CVA w/Hemiparesis/Hemiplegia: No Decreased Functional Mobility/Strength: Yes Sprain/Strain: No Total Points: 16 PT Screen per Nursing Assess ONCE Comment: Protocol Order Physician Instructions: Greater than 3 points order PT Admission Screenin Reason For Exam: Triggered on Admission Diagnosis: cellulitis Open Wound/Cellutlitis/Pressure Ulcers: Yes Acute Fx/ORIF/Change in wt bearing status: Yes Severe MUSCULOSKELETAL pain: Yes ADL Dysfunction: No Acute CVA w/Hemiparesis/Hemiplegia: No Decreased Functional Mobility/Strength: Yes Sprain/Strain: No Total Points: 16 Smoking Cessation Education ONCE Comment: Diagnosis: cellulitis Smoking Status: Current every day smoker How long have you smoked: 30 yrs Have you smoked in the past 12 months: Yes Approximately how many cigarettes per day: 8 Do you dip or chew tobacco: No If,Former Smoker,when did you quit: yrs ago - Discharge Discharge Date: 09/23/20 Disposition: Home, Self-Care Condition: Stable Prescriptions: No Action Insulin Degludec [Tresiba Flextouch U-200] 30 units PO HS Insulin Aspart [Novolog] 100 unit SQ UD Gabapentin 800 mg PO TID Clopidogrel Bisulfate 75 mg [PLAVIX 75 MG Tablet] 75 mg PO DAILY PANTOPRAZOLE 40 mg Tablet [Protonix 40MG Tablet] 40 mg PO QAM Instructions: Peripheral Vascular (Arterial) Disease (DC) Additional Instructions: consider adding ativan to allergy list Follow up with: MEGAN SCHROEDER MD [Primary Care Provider] -
== END 2020-09-23 19:45 | disposition home or self-care (01) ==
LOC: MED SURG 12:55
PROVIDERS: ADMIT General Practice; ATTEND General Practice
DX: L03.116 Cellulitis of left lower limb (principal); L03.115 Cellulitis of right lower limb; E10.51 Type 1 diabetes mellitus with diabetic peripheral angiopathy without gangrene; M79.672 Pain in left foot; M79.671 Pain in right foot; I25.10 Atherosclerotic heart disease of native coronary artery without angina pectoris; I25.2 Old myocardial infarction; F17.210 Nicotine dependence, cigarettes, uncomplicated; Z79.899 Other long term (current) drug therapy; Z20.828 Contact with and (suspected) exposure to other viral communicable diseases
CPT/HCPCS: 0241U; 36415; 71046; 80053; 82947; 83605; 84550; 85025; 87040; 93925; G0378; J1815; J2060; J2270; A9270-GY

== ENCOUNTER 2021-12-19 14:43 | Emergency (ER) | payer MEDICARE ==
[2021-12-19] MEDS ORDERED: TORAdol 30 mg Injection IV ONE (14:58)
[2021-12-19] MEDS ORDERED: Sodium Chloride 0.9% 1000 ML 1,000 ML IV SCH (15:00)
[2021-12-19] MEDS ORDERED: Sodium Chloride 0.9% 1000 ML 1,000 ML ONE (15:04)
[2021-12-19] MEDS ORDERED: TORAdol 30 mg Injection ONE (15:04)
[2021-12-19 15:25] LABS: Absolute Neutrophil Ct (ANC) 3.08 x10^3/uL (1.4-6.9); Basophil (Absolute #) 0.02 x10^3/uL (0-0.4); Eosinophil % 0.4 % (0.00-5.0); Eosinophil (Absolute #) 0.02 x10^3/uL (0-0.5); Hematocrit 36.4 % (35-47); Hemoglobin 11.9 g/dL (12.0-16.0); Lymphocyte (Absolute #) 1.49 x10^3/uL (1.0-4.6); Lymphocytes % 30.5 % (24.0-44.0); Mean Cell Volume 93.3 fL (78-100); Mean Corpuscular Hemoglobin 30.5 pg (26-32); Mean Corpuscular Hgb Concent. 32.7 g/dL (32-36); Mean Platelet Volume 9.7 fL (7.5-11.0); Monocyte (Absolute #) 0.26 x10^3/uL (0.0-1.3); Monocytes % 5.3 % (0.0-12.0); Neutrophil % 63.2 % (36.0-66.0); Platelet Count 215 x10^3/uL (150-450); White Blood Count 4.9 x10^3/uL (4.0-10.5)
[2021-12-19] MEDS ORDERED: MORPHINE SULFATE 4 MG INJ IV ONE ×2 (15:36→20:31)
[2021-12-19] MEDS ORDERED: MORPHINE SULFATE 4 MG INJ ONE ×2 (15:37→20:37)
[2021-12-19 15:46] LABS: ALBUMIN 4.4 g/dL (3.5-5.0); ALKALINE PHOSPHATASE 96 U/L (38-126); ANION GAP 17.7 MEQ/L (5-15); BLOOD UREA NITROGEN 20 mg/dL (7-17); CHLORIDE 100 mmol/L (98-107); Calcium 9.9 mg/dL (8.4-10.2); Carbon Dioxide 22 mmol/L (22-30); Creatinine 1 0.87 mg/dL (0.52-1.04); EST GLOMERULAR FILTRATION RATE > 60.0 ML/MIN; Glucose 197 mg/dL (74-106); Potassium 4.9 mmol/L (3.5-5.1); SGOT/AST 21 U/L (14-36); SGPT/ALT 11 U/L (0-35); SODIUM 134 mmol/L (137-145); Total Protein 7.9 g/dL (6.3-8.2)
--- NOTE | 2021-12-19 16:25 | ERPHSYRPT ---
- History of Present Illness Time Seen by Provider: 12/19/21 14:55 Historian: patient Exam Limitations: no limitations Patient Subjective Stated Complaint: PT TO ER WITH COMPLAINTS OF RLQ PAIN AND CONSTIPATION/DIARRHEA/NAUSEA/VOMITING X 2 WEEKS, WORSENED SINCE YESTERDAY. Triage Nursing Assessment: PT TO ER BY EMS WITH RLQ PAIN, N/V/D X 2 WEEKS. W ORSENED SINCE YESTERDAY. PT A&OX4. SKIN PWD. AMBULATORY. Physician History: Patient is a 61-year-old female presents to our ED via EMS for evaluation of right lower quadrant pain. Patient has been experiencing this pain for the approximately 2 weeks. Pain significantly worse today. Pain now constant. Patient was going to regional however was diverted due to the intensity of the pain. Pain is associated with nausea vomiting diarrhea. Patient also states that she occasionally experiences constipation. Symptoms are moderate in intensity. No specific worsening improving factors. No associated trauma. No fever. No rash. Patient denies a history of the same. Patient voices no other complaints or concerns at this time. Timing/Duration: week(s) (2 weeks) Activities at Onset: none Quality: aching Abdominal Pain Onset Location: RLQ Pain Radiation: no radiation Severity of Pain-Max: moderate Severity of Pain-Current: mild Modifying Factors: Improves With: nothing Associated Symptoms: diarrhea, nausea, vomiting, No denies symptoms, No shortness of breath, No syncope Previous symptoms: no prior history Allergies/Adverse Reactions: No Known Drug Allergies Allergy (Unverified 12/19/21 15:01) Home Medications: Clopidogrel Bisulfate [PLAVIX 75 MG Tablet] 75 mg PO DAILY 09/23/20 [History] Gabapentin 800 mg PO TID 09/23/20 [History] Insulin Aspart [Novolog] 100 unit SQ UD 09/23/20 [History] Insulin Degludec [Tresiba Flextouch U-200] 30 units PO HS 09/23/20 [History] PANTOPRAZOLE 40 mg Tablet [Protonix 40MG Tablet] 40 mg PO QAM 09/23/20 [History] Atorvastatin Calcium 80 mg PO DAILY 12/19/21 [History] Spironolactone 25 mg [Aldactone 25 MG] 25 mg PO DAILY 12/19/21 [History] Hx Tetanus, Diphtheria Vaccination/Date Given: Yes Hx Influenza Vaccination/Date Given: No Hx Pneumococcal Vaccination/Date Given: No Travel Risk - International Travel Have you traveled outside of the country in past 3 weeks: No - Coronavirus Screening Are you exhibiting any of the following symptoms?: No Close contact with a COVID-19 positive Pt in past 14-21 Days: No - Vaccine Status Have you recieved a Covid-19 vaccination: No - Review of Systems Constitutional: No Symptoms, No Fever, No Chills Eyes: No Symptoms Ears, Nose, & Throat: No Symptoms Respiratory: No Symptoms, No Cough, No Dyspnea Cardiac: No Symptoms, No Chest Pain, No Edema, No Syncope Abdominal/Gastrointestinal: No Symptoms, No Abdominal Pain, No Nausea, No Vomiting, No Diarrhea Genitourinary Symptoms: No Symptoms, No Dysuria Musculoskeletal: No Symptoms, No Back Pain, No Neck Pain Skin: No Symptoms, No Rash Neurological: No Symptoms, No Dizziness, No Focal Weakness, No Sensory Changes Psychological: No Symptoms Endocrine: No Symptoms Hematologic/Lymphatic: No Symptoms Immunological/Allergic: No Symptoms All Other Systems: Reviewed and Negative - Past Medical History Pertinent Past Medical History: Yes Neurological History: TIA ENT History: Cataracts, Glaucoma Cardiac History: Angina, Coronary Artery Disease, Myocardial Infarction (ID), Peripheral Vascular Disease Respiratory History: No Pertinent History Endocrine Medical History: Diabetes Type I Musculoskeletal History: Arthritis GI Medical History: Gallbladder Disease, Irritable Bowel History: No Pertinent History Psycho-Social History: Anxiety, Depression Female Reproductive Disorders: No Pertinent History Other Medical History: anemia - Past Surgical History Past Surgical History: Yes Neuro Surgical History: No Pertinent History Cardiac: CABG, Cardiac Stent Respiratory: No Pertinent History Gastrointestinal: Cholecystectomy Genitourinary: No Pertinent History Musculoskeletal: Other Female Surgical History: Section Other Surgical History: ROTATOR CUFF SURGERY, T&A - Social History Smoking Status: Current every day smoker How long have you smoked: 30 yrs Exposure to second hand smoke: Yes Drug Use: none Patient Lives Alone: No - Nursing Vital Signs Nursing Vital Signs: Initial Vital Signs Temperature 97.8 F 12/19/21 14:45 Pulse Rate 78 12/19/21 14:45 Respiratory Rate 12/19/21 14:45 Blood Pressure 167/111 12/19/21 14:45 O2 Sat by Pulse Oximetry 98 12/19/21 14:45 Pain Scale Pain Intensity 5 - Physical Exam General Appearance: no apparent distress, alert Eye Exam: PERRL/EOMI, eyes nml inspection Ears, Nose, Throat Exam: normal ENT inspection, TMs normal, pharynx normal, moist mucous membranes Neck Exam: normal inspection, non-tender, supple, full range of motion Respiratory Exam: normal breath sounds, lungs clear, airway intact, No respiratory distress Cardiovascular Exam: regular rate/rhythm, normal heart sounds Gastrointestinal/Abdomen Exam: soft, tenderness, other (Tenderness to palpation right lower quadrant.), No mass Back Exam: normal inspection, normal range of motion, No CVA tenderness, No vertebral tenderness Extremity Exam: normal inspection, normal range of motion, pelvis stable Neurologic Exam: alert, oriented x 3, cooperative, normal mood/affect, nml cerebellar function, sensation nml, No motor deficits Skin Exam: normal color, warm, dry Lymphatic Exam: No adenopathy SpO2 Interpretation: normal SpO2: 98 O2 Delivery: Room Air - Course Nursing assessment & vital signs reviewed: Yes - CT Exams Abdomen/Pelvis CT Interpretation: Tele-radiologist Report (Nephrolithiasis bladder with air possible iatrogenic from catheterization versus gas-forming bacteria, vascular calcifications, spine arthritis) - Radiology Ultrasound Exam Pelvis Ultrasound: tele radiology report (Uterus is 5.6 cm in length 2.3 AP and 3.7 width. It is anteverted endometrium is 0.19. Right ovary not seen. Left ovary 2.2 x 1.6 x 2.2. Small left ovarian cyst. No fluid in the cul-de-sac.) Ordered Tests: Active Orders 24 hr Category Date Time Status Rouse [Catheter-[place] Rouse] STAT Care 12/19/21 18:46 Active IV Insertion STAT Care 12/19/21 14:58 Active ABDOMEN AND PELVIS W/0 CONTRAS [CT] Stat Exams 12/19/21 16:32 Completed PELVIS TRANS VAGINAL [US] Stat Exams 12/19/21 22:09 Taken CBC W DIFF Stat Lab 12/19/21 15:20 Completed CMP Stat Lab 12/19/21 15:20 Completed CULTURE,URINE Stat Lab 12/19/21 18:46 Received POCT GLUCOSE Stat Lab 12/19/21 19:16 Completed UA W/RFX CULTURE Stat Lab 12/19/21 18:46 Completed Medication Summary Generic Name Dose Route Start Last Admin Trade Name Freq PRN Reason Stop Dose Admin Sodium Chloride 1,000 mls @ 100 mls/hr 12/19/21 15:00 12/19/21 15:05 Sodium Chloride 0.9% 1000 Ml IV 01/18/22 14:59 100 mls/hr .Q10H CARLOS Administration Discontinued Medications Generic Name Dose Route Start Last Admin Trade Name Clare PRN Reason Stop Dose Admin Ceftriaxone Sodium/Dextrose 1 g in 50 mls @ 100 mls/hr 12/19/21 20:10 12/19/21 20:47 Rocephin 1 Gm-D5w 50 Ml Bag IV 12/19/21 20:39 Infused STAT STA Infusion Ceftriaxone Sodium/Dextrose Confirm 12/19/21 20:11 Rocephin 1 Gm-D5w 50 Ml Bag Administered 12/19/21 20:12 Dose 1 g in 50 mls @ ud IV .STK-MED ONE Ketorolac Tromethamine 30 mg 12/19/21 14:58 12/19/21 15:06 Ketorolac Tromethamine 30 Mg/Ml Inj IV 12/19/21 14:59 30 mg STAT ONE Administration Ketorolac Tromethamine Confirm 12/19/21 15:04 Ketorolac Tromethamine 30 Mg/Ml Inj Administered 12/19/21 15:05 Dose 30 mg .ROUTE .STK-MED ONE Morphine Sulfate 4 mg 12/19/21 15:36 12/19/21 15:38 Morphine Sulfate 4 Mg/Ml Injection IV 12/19/21 15:37 4 mg STAT ONE Administration Morphine Sulfate Confirm 12/19/21 15:37 Morphine Sulfate 4 Mg/Ml Injection Administered 12/19/21 15:38 Dose 4 mg .ROUTE .STK-MED ONE Morphine Sulfate 4 mg 12/19/21 20:31 12/19/21 20:43 Morphine Sulfate 4 Mg/Ml Injection IV 12/19/21 20:32 4 mg STAT ONE Administration Morphine Sulfate Confirm 12/19/21 20:37 Morphine Sulfate 4 Mg/Ml Injection Administered 12/19/21 20:38 Dose 4 mg .ROUTE .STK-MED ONE Lab/Rad Data: Laboratory Result Diagrams 12/19/21 15:20 12/19/21 15:20 Laboratory Results 12/19/21 12/19/21 12/19/21 Range/Units 19:16 18:46 15:20 WBC (4.0-10.5) x10^3/uL RBC (4.1-5.4) x10^6/uL Hgb (12.0-16.0) g/dL Hct (35-47) % MCV (78-100) fL MCH (26-32) pg MCHC (32-36) g/dL RDW (11.5-14.0) % Plt Count (150-450) x10^3/uL MPV (7.5-11.0) fL Gran % (36.0-66.0) % Immature Gran % (Auto) (0.00-0.4) % Nucleat RBC Rel Count (0.00-0.1) % Eos # (Auto) (0-0.5) x10^3/uL Immature Gran # (Auto) (0.00-0.03) x10^3u/L Absolute Lymphs (auto) (1.0-4.6) x10^3/uL Absolute Monos (auto) (0.0-1.3) x10^3/uL Absolute Nucleated RBC (0.00-0.01) x10^3u/L Lymphocytes % (24.0-44.0) % Monocytes % (0.0-12.0) % Eosinophils % (0.00-5.0) % Basophils % (0.0-0.4) % Absolute Granulocytes (1.4-6.9) x10^3/uL Basophils # (0-0.4) x10^3/uL Sodium 134 L (137-145) mmol/L Potassium 4.9 (3.5-5.1) mmol/L Chloride 100 (98-107) mmol/L Carbon Dioxide 22 (22-30) mmol/L Anion Gap 17.7 H (5-15) MEQ/L BUN 20 H (7-17) mg/dL Creatinine 0.87 (0.52-1.04) mg/dL Estimated GFR > 60.0 ML/MIN Glucose 197 H (74-106) mg/dL POC Glucometer 127 H (74 to 106) mg/dL Calcium 9.9 (8.4-10.2) mg/dL Total Bilirubin 0.90 (0.2-1.3) mg/dL AST 21 (14-36) U/L ALT 11 (0-35) U/L Alkaline Phosphatase 96 (38-126) U/L Serum Total Protein 7.9 (6.3-8.2) g/dL Albumin 4.4 (3.5-5.0) g/dL Urinalys Dipstick Clnc MAIN LAB Urine Color YELLOW (YELLOW) Urine Appearance CLEAR (CLEAR) Urine pH 7.5 (5-6) Ur Specific [place] 1.015 (1.005-1.025) POC Urine Protein Conf NEGATIVE (Negative) Urine Ketones NEGATIVE (NEGATIVE) Urine Nitrite NEGATIVE (NEGATIVE) Urine Bilirubin NEGATIVE (NEGATIVE) Urine Urobilinogen 0.2 (0-1) mg/dL Urine Leukocytes TRACE (NEGATIVE) Urine WBC (Auto) 16-25 (0-5) /HPF Urine RBC (Auto) 0-2 (0-2) /HPF U Epithel Cells (Auto) NONE (FEW) /HPF Urine Bacteria (Auto) MODERATE (NEGATIVE) /HPF Urine RBC NEGATIVE (0-5) Sudhakar/ul Ur Culture Indicated? YES Urine Glucose NEGATIVE (NEGATIVE) mg/dL 12/19/21 Range/Units 15:20 WBC 4.9 (4.0-10.5) x10^3/uL RBC 3.90 L (4.1-5.4) x10^6/uL Hgb 11.9 L (12.0-16.0) g/dL Hct 36.4 (35-47) % MCV 93.3 (78-100) fL MCH 30.5 (26-32) pg MCHC 32.7 (32-36) g/dL RDW 15.0 H (11.5-14.0) % Plt Count 215 (150-450) x10^3/uL MPV 9.7 (7.5-11.0) fL Gran % 63.2 (36.0-66.0) % Immature Gran % (Auto) 0.2 (0.00-0.4) % Nucleat RBC Rel Count 0.0 (0.00-0.1) % Eos # (Auto) 0.02 (0-0.5) x10^3/uL Immature Gran # (Auto) 0.01 (0.00-0.03) x10^3u/L Absolute Lymphs (auto) 1.49 (1.0-4.6) x10^3/uL Absolute Monos (auto) 0.26 (0.0-1.3) x10^3/uL Absolute Nucleated RBC 0.00 (0.00-0.01) x10^3u/L Lymphocytes % 30.5 (24.0-44.0) % Monocytes % 5.3 (0.0-12.0) % Eosinophils % 0.4 (0.00-5.0) % Basophils % 0.4 (0.0-0.4) % Absolute Granulocytes 3.08 (1.4-6.9) x10^3/uL Basophils # 0.02 (0-0.4) x10^3/uL Sodium (137-145) mmol/L Potassium (3.5-5.1) mmol/L Chloride (98-107) mmol/L Carbon Dioxide (22-30) mmol/L Anion Gap (5-15) MEQ/L BUN (7-17) mg/dL Creatinine (0.52-1.04) mg/dL Estimated GFR ML/MIN Glucose (74-106) mg/dL POC Glucometer (74 to 106) mg/dL Calcium (8.4-10.2) mg/dL Total Bilirubin (0.2-1.3) mg/dL AST (14-36) U/L ALT (0-35) U/L Alkaline Phosphatase (38-126) U/L Serum Total Protein (6.3-8.2) g/dL Albumin (3.5-5.0) g/dL Urinalys Dipstick Clnc Urine Color (YELLOW) Urine Appearance (CLEAR) Urine pH (5-6) Ur Specific [place] (1.005-1.025) POC Urine Protein Conf (Negative) Urine Ketones (NEGATIVE) Urine Nitrite (NEGATIVE) Urine Bilirubin (NEGATIVE) Urine Urobilinogen (0-1) mg/dL Urine Leukocytes (NEGATIVE) Urine WBC (Auto) (0-5) /HPF Urine RBC (Auto) (0-2) /HPF U Epithel Cells (Auto) (FEW) /HPF Urine Bacteria (Auto) (NEGATIVE) /HPF Urine RBC (0-5) Sudhakar/ul Ur Culture Indicated? Urine Glucose (NEGATIVE) mg/dL - Progress Progress: improved Progress Note: Patient reassessed. She remains pain-free. Patient requesting discharge. Work-up reveals a urinary tract infection. Patient received antibiotics in our ED. A antibiotic prescription will be forwarded the patient's pharmacy. Patient agrees to follow-up with primary care doctor within 48 hours for evaluation. Patient given a referral to Dr. Schroeder in the event that she cannot get into see her primary care doctor in a timely fashion. She voices no other complaints or concerns at this time. Portions of this note were created with voice recognition technology. There may be grammatical, spelling, punctuation or sound alike errors 12/19/21 23:27 12/19/21 23:29 Counseled pt/family regarding: lab results, diagnosis, need for follow-up, rad results - Departure Departure Disposition: Home Clinical Impression: Arthritis of spine, Vascular calcification, Nephrolithiasis, UTI (urinary tract infection) Condition: Stable Critical Care Time: No Referrals: DOCTOR,NO FAMILY [Primary Care Provider] - Follow up/PCP as directed MEGAN SCHROEDER MD [ACTIVE STAFF] - Follow up/PCP as directed Additional Instructions: Discharge/Care Plan NABEELMELISSA STACY was seen on 12/19/21 in the Emergency Room. The patient was counseled regarding Diagnosis,Lab results, Imaging studies, need for follow up and when to return to the Emergency Room. Prescriptions given: Discharge Note I have spoken with the patient and/or caregivers. I have explained the patient's condition, diagnosis and treatment plan based on the information available to me at this time. I have answered the patient's and/or caregiver's questions and addressed any concerns. The patient and/or caregivers have as good understanding of the patient's diagnosis, condition and treatment plan as can be expected at this point. The vital signs have been stable. The patient's condition is stable and appropriate for discharge from the emergency department. The patient will pursue further outpatient evaluation with the primary care physician or other designated or consulting physician as outlined in the discharge instructions. The patient and/or caregivers are agreeable to this plan of care and follow-up instructions have been explained in detail. The patient and/or caregivers have received these instruction. The patient/and or caregivers are aware that any significant change in condition or worsening of symptoms should prompt an immediate return to this or the closest emergency department or call 911. Prescriptions: Nitrofurantoin Macro 100 mg [Macrobid 100MG Capsule] 100 mg PO BID 7 Days #14 cap
--- NOTE | 2021-12-19 16:55 | XRAY ---
Indication: Right lower quadrant pain 2 weeks. Multiple contiguous axial images obtained through the abdomen and pelvis without contrast. Comparison: September 01, 2021. Lung bases clear. Heart not enlarged. Noncontrasted stomach and bowel loops nonobstructed. Appendix not visualized. Again cholecystectomy. No free fluid/air. Right kidney again demonstrates nonobstructing punctate calculus. Urinary bladder is now moderately distended with new intraluminal air either iatrogenic from recent catheterization versus gas-forming bacterial infection. Remaining liver, pancreas, spleen, adrenal glands, kidneys, ureters, bladder, and uterus are unremarkable for noncontrast exam. Again moderate scattered vascular calcifications without AAA. Osseous structures intact with minimal degenerative changes of the visualized lower thoracic spine. Again partially visualized proximal left femur fracture with intact orthopedic screws. Impression: 1. New moderately distended urinary bladder with intraluminal air either iatrogenic versus gas-forming bacterial infection. 2. Again nonobstructing right renal punctate calculus, scattered arteriosclerotic disease, and chronic bony findings. 3. Remaining CT abdomen/pelvis without contrast exam is negative.
[2021-12-19 19:45] LABS: Appearance CLEAR (CLEAR)
[2021-12-19 19:46] LABS: Bilirubin NEGATIVE (NEGATIVE); Dipstick done @ ? MAIN LAB; Glucose NEGATIVE (NEGATIVE); Ketones NEGATIVE (NEGATIVE); Nitrite NEGATIVE (NEGATIVE); Ph 7.5 (5-6); Protein,Urine Dip NEGATIVE (Negative); RBC NEGATIVE Ery/ul (0-5); Specific Gravity 1.015 (1.005-1.025); Urobilinogen 0.2 mg/dL (0-1)
[2021-12-19 19:49] LABS: Bacteria MODERATE /HPF (NEGATIVE); RBC 0-2 /HPF (0-2)
[2021-12-19 19:50] LABS: Urine Cultured Indicated? YES
[2021-12-19] MEDS ORDERED: ROCEPHIN 1 Gm-D5w 50 ml Bag** 1 G/50 ML IVPB IV STA (20:10)
[2021-12-19] MEDS ORDERED: ROCEPHIN 1 Gm-D5w 50 ml Bag** 1 G/50 ML IVPB IV ONE (20:11)
[2021-12-19 22:44] VITALS: BP 163/79; PULSE 84; O2SAT 98
--- NOTE | 2021-12-20 08:35 | XRAY ---
Indication: Right lower quadrant pain. Two-dimensional transvaginal pelvic sonogram performed. Comparison: August 10, 2021. Uterus again anteverted measuring 5.6 x 2.3 x 3.7 cm. There remains multiple subcentimeter myometrial calcifications favoring fibroids. Endometrial stripe measures 1.9 mm. No endometrial cavity mass or fluid collection. Left ovary measures 2.2 x 1.6 x 2.2 cm and demonstrates normal perfusion and follicular cysts with 1.4 cm dominant cyst. Right ovary not visualized. No suspicious adnexal mass or free fluid. Impression: Nonvisualization right ovary. Again tiny uterine calcified fibroids. Remaining transvaginal pelvic sonogram is negative. Comment: Preliminary report was given.
== END 2021-12-19 23:58 | disposition home or self-care (01) ==
LOC: ED 14:43
DX: N39.0 Urinary tract infection, site not specified (principal); N20.0 Calculus of kidney; I70.90 Unspecified atherosclerosis; M47.814 Spondylosis without myelopathy or radiculopathy, thoracic region; R10.31 Right lower quadrant pain; R11.2 Nausea with vomiting, unspecified; R19.7 Diarrhea, unspecified; E10.9 Type 1 diabetes mellitus without complications; Z72.0 Tobacco use; Z79.4 Long term (current) use of insulin; Z79.02 Long term (current) use of antithrombotics/antiplatelets; Z79.899 Other long term (current) drug therapy; Z28.310 Unvaccinated for COVID-19
CPT/HCPCS: 36000; 36415; 51702; 74176; 76830; 80053; 81015; 82947; 85025; 87077; 87086; 87186; 96365; 96374; 96375; 96376; 99285; J0696; J1885; J2270

== ENCOUNTER 2022-06-23 18:41 | Emergency (ER) | payer MEDICARE ==
[2022-06-23 19:08] VITALS: PULSE 79
[2022-06-23] MEDS ORDERED: Sodium Chloride 0.9% 1000 ML 1,000 ML IV STA (19:13)
[2022-06-23 19:14] LABS: Basophil (Absolute #) 0.01 x10^3/uL (0-0.4); Eosinophil % 1.8 % (0.00-5.0); Hematocrit 31.3 % (35-47); Hemoglobin 9.8 g/dL (12.0-16.0); Lymphocyte (Absolute #) 1.09 x10^3/uL (1.0-4.6); Mean Cell Volume 98.4 fL (78-100); Mean Corpuscular Hemoglobin 30.8 pg (26-32); Mean Corpuscular Hgb Concent. 31.3 g/dL (32-36); Mean Platelet Volume 9.8 fL (7.5-11.0); Monocyte (Absolute #) 0.32 x10^3/uL (0.0-1.3); Monocytes % 5.9 % (0.0-12.0); Neutrophil % 71.7 % (36.0-66.0); Platelet Count 145 x10^3/uL (150-450); Red Blood Count 3.18 x10^6/uL (4.1-5.4); Red Cell Distribution Width 13.5 % (11.5-14.0); White Blood Count 5.4 x10^3/uL (4.0-10.5)
[2022-06-23] MEDS ORDERED: Sodium Chloride 0.9% 1000 ML 1,000 ML ONE (19:16)
[2022-06-23 19:29] LABS: ALBUMIN 3.8 g/dL (3.5-5.0); ALKALINE PHOSPHATASE 86 U/L (38-126); ANION GAP 10.3 MEQ/L (5-15); BLOOD UREA NITROGEN 26 mg/dL (7-17); CHLORIDE 103 mmol/L (98-107); Calcium 9.1 mg/dL (8.4-10.2); Carbon Dioxide 28 mmol/L (22-30); Creatinine 1 0.71 mg/dL (0.52-1.04); EST GLOMERULAR FILTRATION RATE > 60.0 ML/MIN; Glucose 89 mg/dL (74-106); Potassium 5.1 mmol/L (3.5-5.1); SGOT/AST 25 U/L (14-36); SGPT/ALT 17 U/L (0-35); SODIUM 136 mmol/L (137-145)
[2022-06-23 19:48] LABS: MAGNESIUM 2.5 mg/dL (1.6-2.3); NT PRO BNP 286 pg/mL (0-900); TROPONIN < 0.012 ng/mL (0.000-0.034)
[2022-06-23 20:13] VITALS: BP 125/50; O2SAT 99
[2022-06-23 20:59] LABS: Mucus SLIGHT /HPF (NEGATIVE); RBC 0-2 /HPF (0-2)
[2022-06-23 21:00] LABS: Appearance CLEAR (CLEAR); Bilirubin SMALL (NEGATIVE); Dipstick done @ ? MAIN LAB; Glucose 100 mg/dL (NEGATIVE); Ketones NEGATIVE (NEGATIVE); Nitrite NEGATIVE (NEGATIVE); Protein,Urine Dip NEGATIVE (Negative); RBC NEGATIVE Ery/ul (0-5); Urobilinogen 0.2 mg/dL (0-1)
[2022-06-23 21:02] LABS: Bacteria NONE SEEN /HPF (NEGATIVE); Urine Cultured Indicated? ORDERED SEPARATELY
--- NOTE | 2022-06-23 21:06 | XRAY ---
Indication: Bilateral leg shakiness. Falls. Multiple contiguous axial images obtained through the head without contrast. Comparison: August 14, 2017 Normal appearing brain parenchyma, ventricles, and bony calvarium for patient's age. Paranasal sinuses and mastoid air cells are clear. Impression: Continued normal CT head without contrast exam. Comment: Preliminary interpretation made by [facility]. No critical discrepancy.
--- NOTE | 2022-06-23 21:08 | XRAY ---
Indication: Pain following fall. Comparison: None 2 view right ribs negative for acute fracture, dislocation, or suspicious bony lesions. Incidental osteopenia, moderate right shoulder degenerative arthropathy, resection distal right clavicle, CABG surgery, and cholecystectomy.
--- NOTE | 2022-06-23 21:08 | XRAY ---
Indication: Bilateral leg shakiness. Right rib pain following fall. Comparison: September 23, 2020 Portable chest remains inflated and clear. Heart not enlarged again with CABG. Bony thorax intact again with osteopenia, degenerative changes, and distal right clavicle resection. Impression: Continued nonacute chest with chronic features.
[2022-06-23 21:24] LABS: Barbiturate,Urine NEGATIVE (NEGATIVE); Benzodiazepine,Urine POSITIVE (NEGATIVE); Cocaine,Urine NEGATIVE (NEGATIVE); Methadone,Urine NEGATIVE (NEGATIVE); Opiate,Urine POSITIVE (NEGATIVE); PCP,Urine NEGATIVE (NEGATIVE); THC,Urine POSITIVE (NEGATIVE)
[2022-06-23 21:38] LABS: Amphetamine,Urine POSITIVE (NEGATIVE)
[2022-06-23] MEDS ORDERED: KEFLEX 500 MG PO ONE (21:45)
[2022-06-23] MEDS ORDERED: KEFLEX 500 MG ONE (21:48)
--- NOTE | 2022-06-23 21:57 | ERPHSYRPT ---
- History of Present Illness Time Seen by Provider: 06/23/22 19:00 Source: patient, EMS Exam Limitations: no limitations Patient Subjective Stated Complaint: Pt fell 3 days ago and injured her ribs and then she fell again today and didn't injure herself but her legs keep shaking and she can't stand without the shaking going out of control, pt does have seizures and is a type 1 diabetic Triage Nursing Assessment: Pt brought to the ER by EMS, vitals wnl, rates pain in her ribs as 6/10, pt thinks that she is dying, starts a sentence and loses tr act and can't continue, hx of a TIA, pt seems confused and can't remember being in the hospital last month, skin n/w/d, pulses normal, confused Physician History: 62-year-old female with multiple medical problems was recently admitted to [facility] presented in the ER with chief complaint of legs giving away, twitching and frequent falls lately. Patient reports she fell 3 days ago and hit her right ribs. Did not hit her head, no loss of consciousness. Patient reports it hurts to have twisting movements of chest but denies any difficulty breathing. No abdominal pain nausea or vomiting. Patient is not a good historian and has some element of confusion and keeps changing topic. She even does not remember that she was in the [facility]. Patient denies alcohol use but does admit smoking marijuana. Not a good historian and history is limited. She feels weak fatigued tired with lack of energy. Timing/Duration: day(s), intermittent, gradual onset, worse Severity: moderate Associated Symptoms: No vomiting, No abdominal pain, No shortness of breath, No chest pain, No headaches, No loss of appetite, No seizure, No weakness Allergies/Adverse Reactions: No Known Drug Allergies Allergy (Verified 06/23/22 19:08) Home Medications: Clopidogrel Bisulfate [PLAVIX 75 MG Tablet] 75 mg PO DAILY 09/23/20 [History] Gabapentin 900 mg PO TID 09/23/20 [History] Insulin Aspart [Novolog] 100 unit SQ UD 09/23/20 [History] Insulin Degludec [Tresiba Flextouch U-200] 30 units PO HS 09/23/20 [History] Atorvastatin Calcium 80 mg PO DAILY 12/19/21 [History] Alpha Lipoic Acid 600 mg PO DAILY 06/23/22 [History] Amitriptyline HCl 25 mg [Amitriptyline 25 mg Tablet] 0 mg PO HS 06/23/22 [History] Omeprazole 20 mg PO DAILY 06/23/22 [History] Ranolazine 500 MG [Ranexa 500 MG] 1,000 mg PO BID 06/23/22 [History] Hx Tetanus, Diphtheria Vaccination/Date Given: Yes Hx Influenza Vaccination/Date Given: No Hx Pneumococcal Vaccination/Date Given: No Travel Risk - International Travel Have you traveled outside of the country in past 3 weeks: No - Coronavirus Screening Are you exhibiting any of the following symptoms?: No - Vaccine Status Have you recieved a Covid-19 vaccination: No - Review of Systems Constitutional: Fatigue Eyes: No Symptoms Ears, Nose, & Throat: No Symptoms Respiratory: No Symptoms Cardiac: Chest Pain (Right side chest wall) Abdominal/Gastrointestinal: No Symptoms Genitourinary Symptoms: No Symptoms Musculoskeletal: Myalgias Skin: No Symptoms Neurological: No Symptoms Psychological: Anxiety Endocrine: No Symptoms Hematologic/Lymphatic: No Symptoms Immunological/Allergic: No Symptoms - Past Medical History Pertinent Past Medical History: Yes Neurological History: TIA ENT History: Cataracts, Glaucoma Cardiac History: Angina, Coronary Artery Disease, Myocardial Infarction ([place]), Peripheral Vascular Disease Respiratory History: No Pertinent History Endocrine Medical History: Diabetes Type I Musculoskeletal History: Arthritis GI Medical History: Gallbladder Disease, Irritable Bowel History: No Pertinent History Psycho-Social History: Anxiety, Depression Female Reproductive Disorders: No Pertinent History Other Medical History: anemia - Past Surgical History Past Surgical History: Yes Neuro Surgical History: No Pertinent History Cardiac: CABG, Cardiac Stent Respiratory: No Pertinent History Gastrointestinal: Cholecystectomy Genitourinary: No Pertinent History Musculoskeletal: Other Female Surgical History: Section Other Surgical History: ROTATOR CUFF SURGERY, T&A - Social History Smoking Status: Current every day smoker How long have you smoked: 30 yrs Exposure to second hand smoke: Yes Drug Use: none Patient Lives Alone: No - Nursing Vital Signs Nursing Vital Signs: Initial Vital Signs Temperature 97.0 F 06/23/22 18:45 Pulse Rate 79 06/23/22 18:45 Blood Pressure 114/89 06/23/22 18:45 O2 Sat by Pulse Oximetry 98 06/23/22 18:45 Pain Scale Pain Intensity 6 - Physical Exam General Appearance: no apparent distress, alert Eye Exam: PERRL/EOMI, eyes nml inspection Ears, Nose, Throat Exam: normal ENT inspection, TMs normal, pharynx normal, moist mucous membranes Neck Exam: normal inspection, non-tender, supple, full range of motion, No meningismus Respiratory Exam: normal breath sounds, chest tenderness (Right lateral chest wall with no crepitus.), lungs clear Cardiovascular Exam: regular rate/rhythm, normal heart sounds Gastrointestinal/Abdomen Exam: soft, normal bowel sounds, No tenderness Back Exam: normal inspection, normal range of motion Extremity Exam: normal inspection, normal range of motion Neurologic Exam: alert, oriented x 3, cooperative, 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 nml as tested, sensation nml, No normal mood/affect, No motor deficits Skin Exam: normal color SpO2 Interpretation: normal SpO2: 99 O2 Delivery: Room Air Ordered Tests: Active Orders 24 hr Category Date Time Status IV Insertion STAT Care 06/23/22 18:57 Active POCT Glucose Check STAT Care 06/23/22 19:03 Active cath [Cath for Specimen-Straight] STAT Care 06/23/22 20:37 Active CHEST 1 VIEW (PORTABLE) Stat Exams 06/23/22 19:13 Completed HEAD WITHOUT CONTRAST [CT] Stat Exams 06/23/22 19:14 Completed RIBS UNILATERAL Stat Exams 06/23/22 Completed CBC W DIFF Stat Lab 06/23/22 19:12 Completed CMP Stat Lab 06/23/22 19:12 Completed CULTURE,URINE Stat Lab 06/23/22 20:38 Received Lactic Acid Stat Lab 06/23/22 20:07 Completed MAGNESIUM Stat Lab 06/23/22 19:00 Completed NT PRO BNP Stat Lab 06/23/22 19:00 Completed POCT GLUCOSE Stat Lab 06/23/22 19:08 Completed TROPONIN Q4H Lab 06/23/22 19:00 Completed TROPONIN Q4H Lab 06/23/22 23:15 Ordered TROPONIN Q4H Lab 06/24/22 03:15 Ordered UA W/RFX CULTURE Stat Lab 06/23/22 20:37 Completed Urine Triage Profile Stat Lab 06/23/22 20:37 Completed Medication Summary Discontinued Medications Generic Name Dose Route Start Last Admin Trade Name Freq PRN Reason Stop Dose Admin Cephalexin HCl 500 mg 06/23/22 21:45 06/23/22 21:49 Cephalexin Mh500 Mg Capsule PO 06/23/22 21:46 500 mg STAT ONE Administration Cephalexin HCl Confirm 06/23/22 21:48 Cephalexin Mh500 Mg Capsule Administered 06/23/22 21:49 Dose 500 mg .ROUTE .STK-MED ONE Sodium Chloride 1,000 mls @ 999 mls/hr 06/23/22 19:13 06/23/22 20:18 Sodium Chloride 0.9% 1000 Ml IV 06/23/22 20:13 Infused .Q1H1M STA Infusion Sodium Chloride Confirm 06/23/22 19:16 Sodium Chloride 0.9% 1000 Ml Administered 06/23/22 19:17 Dose 1,000 mls @ ud .ROUTE .STK-MED ONE Lab/Rad Data: Laboratory Result Diagrams 06/23/22 19:12 06/23/22 19:12 Laboratory Results 06/23/22 06/23/22 06/23/22 Range/Units 20:37 20:37 20:07 WBC (4.0-10.5) x10^3/uL RBC (4.1-5.4) x10^6/uL Hgb (12.0-16.0) g/dL Hct (35-47) % MCV (78-100) fL MCH (26-32) pg MCHC (32-36) g/dL RDW (11.5-14.0) % Plt Count (150-450) x10^3/uL MPV (7.5-11.0) fL Gran % (36.0-66.0) % Immature Gran % (Auto) (0.00-0.4) % Nucleat RBC Rel Count (0.00-0.1) % Eos # (Auto) (0-0.5) x10^3/uL Immature Gran # (Auto) (0.00-0.03) x10^3u/L Absolute Lymphs (auto) (1.0-4.6) x10^3/uL Absolute Monos (auto) (0.0-1.3) x10^3/uL Absolute Nucleated RBC (0.00-0.01) x10^3u/L Lymphocytes % (24.0-44.0) % Monocytes % (0.0-12.0) % Eosinophils % (0.00-5.0) % Basophils % (0.0-0.4) % Absolute Granulocytes (1.4-6.9) x10^3/uL Basophils # (0-0.4) x10^3/uL Sodium (137-145) mmol/L Potassium (3.5-5.1) mmol/L Chloride (98-107) mmol/L Carbon Dioxide (22-30) mmol/L Anion Gap (5-15) MEQ/L BUN (7-17) mg/dL Creatinine (0.52-1.04) mg/dL Estimated GFR ML/MIN Glucose (74-106) mg/dL POC Glucometer (74 to 106) mg/dL Lactic Acid 0.7 (0.4-2.0) Calcium (8.4-10.2) mg/dL Magnesium (1.6-2.3) mg/dL Total Bilirubin (0.2-1.3) mg/dL AST (14-36) U/L ALT (0-35) U/L Alkaline Phosphatase (38-126) U/L Troponin I (0.000-0.034) ng/mL NT-Pro-B Natriuret Pep (0-900) pg/mL Serum Total Protein (6.3-8.2) g/dL Albumin (3.5-5.0) g/dL Urinalys Dipstick Clnc MAIN LAB Urine Color DARK YELLOW (YELLOW) Urine Appearance CLEAR (CLEAR) Urine pH 7.0 (5-6) Ur Specific Hume 1.020 (1.005-1.025) POC Urine Protein Conf NEGATIVE (Negative) Urine Ketones NEGATIVE (NEGATIVE) Urine Nitrite NEGATIVE (NEGATIVE) Urine Bilirubin SMALL A (NEGATIVE) Urine Urobilinogen 0.2 (0-1) mg/dL Urine Leukocytes TRACE A (NEGATIVE) Urine WBC (Auto) 16-25 A (0-5) /HPF Urine RBC (Auto) 0-2 (0-2) /HPF U Epithel Cells (Auto) NONE (FEW) /HPF Urine Bacteria (Auto) NONE SEEN (NEGATIVE) /HPF Urine RBC NEGATIVE (0-5) Sudhakar/ul Urine Mucus (Auto) SLIGHT A (NEGATIVE) /HPF Ur Culture Indicated? ORDERED SEPARATELY Urine Glucose 100 A (NEGATIVE) mg/dL Urine Opiates Level POSITIVE (NEGATIVE) Ur Methadone NEGATIVE (NEGATIVE) Urine Barbiturates NEGATIVE (NEGATIVE) Ur Phencyclidine (PCP) NEGATIVE (NEGATIVE) Urine Amphetamine POSITIVE (NEGATIVE) U Benzodiazepine Level POSITIVE (NEGATIVE) Urine Cocaine NEGATIVE (NEGATIVE) Urine Marijuana (THC) POSITIVE (NEGATIVE) 06/23/22 06/23/22 06/23/22 Range/Units 19:12 19:12 19:08 WBC 5.4 (4.0-10.5) x10^3/uL RBC 3.18 L (4.1-5.4) x10^6/uL Hgb 9.8 L (12.0-16.0) g/dL Hct 31.3 L (35-47) % MCV 98.4 (78-100) fL MCH 30.8 (26-32) pg MCHC 31.3 L (32-36) g/dL RDW 13.5 (11.5-14.0) % Plt Count 145 L (150-450) x10^3/uL MPV 9.8 (7.5-11.0) fL Gran % 71.7 H (36.0-66.0) % Immature Gran % (Auto) 0.4 (0.00-0.4) % Nucleat RBC Rel Count 0.0 (0.00-0.1) % Eos # (Auto) 0.10 (0-0.5) x10^3/uL Immature Gran # (Auto) 0.02 (0.00-0.03) x10^3u/L Absolute Lymphs (auto) 1.09 (1.0-4.6) x10^3/uL Absolute Monos (auto) 0.32 (0.0-1.3) x10^3/uL Absolute Nucleated RBC 0.00 (0.00-0.01) x10^3u/L Lymphocytes % 20.0 L (24.0-44.0) % Monocytes % 5.9 (0.0-12.0) % Eosinophils % 1.8 (0.00-5.0) % Basophils % 0.2 (0.0-0.4) % Absolute Granulocytes 3.90 (1.4-6.9) x10^3/uL Basophils # 0.01 (0-0.4) x10^3/uL Sodium 136 L (137-145) mmol/L Potassium 5.1 (3.5-5.1) mmol/L Chloride 103 (98-107) mmol/L Carbon Dioxide 28 (22-30) mmol/L Anion Gap 10.3 (5-15) MEQ/L BUN 26 H (7-17) mg/dL Creatinine 0.71 (0.52-1.04) mg/dL Estimated GFR > 60.0 ML/MIN Glucose 89 (74-106) mg/dL POC Glucometer 81 (74 to 106) mg/dL Lactic Acid (0.4-2.0) Calcium 9.1 (8.4-10.2) mg/dL Magnesium (1.6-2.3) mg/dL Total Bilirubin 0.30 (0.2-1.3) mg/dL AST 25 (14-36) U/L ALT 17 (0-35) U/L Alkaline Phosphatase 86 (38-126) U/L Troponin I (0.000-0.034) ng/mL NT-Pro-B Natriuret Pep (0-900) pg/mL Serum Total Protein 7.0 (6.3-8.2) g/dL Albumin 3.8 (3.5-5.0) g/dL Urinalys Dipstick Clnc Urine Color (YELLOW) Urine Appearance (CLEAR) Urine pH (5-6) Ur Specific Hume (1.005-1.025) POC Urine Protein Conf (Negative) Urine Ketones (NEGATIVE) Urine Nitrite (NEGATIVE) Urine Bilirubin (NEGATIVE) Urine Urobilinogen (0-1) mg/dL Urine Leukocytes (NEGATIVE) Urine WBC (Auto) (0-5) /HPF Urine RBC (Auto) (0-2) /HPF U Epithel Cells (Auto) (FEW) /HPF Urine Bacteria (Auto) (NEGATIVE) /HPF Urine RBC (0-5) Sudhakar/ul Urine Mucus (Auto) (NEGATIVE) /HPF Ur Culture Indicated? Urine Glucose (NEGATIVE) mg/dL Urine Opiates Level (NEGATIVE) Ur Methadone (NEGATIVE) Urine Barbiturates (NEGATIVE) Ur Phencyclidine (PCP) (NEGATIVE) Urine Amphetamine (NEGATIVE) U Benzodiazepine Level (NEGATIVE) Urine Cocaine (NEGATIVE) Urine Marijuana (THC) (NEGATIVE) 06/23/22 Range/Units 19:00 WBC (4.0-10.5) x10^3/uL RBC (4.1-5.4) x10^6/uL Hgb (12.0-16.0) g/dL Hct (35-47) % MCV (78-100) fL MCH (26-32) pg MCHC (32-36) g/dL RDW (11.5-14.0) % Plt Count (150-450) x10^3/uL MPV (7.5-11.0) fL Gran % (36.0-66.0) % Immature Gran % (Auto) (0.00-0.4) % Nucleat RBC Rel Count (0.00-0.1) % Eos # (Auto) (0-0.5) x10^3/uL Immature Gran # (Auto) (0.00-0.03) x10^3u/L Absolute Lymphs (auto) (1.0-4.6) x10^3/uL Absolute Monos (auto) (0.0-1.3) x10^3/uL Absolute Nucleated RBC (0.00-0.01) x10^3u/L Lymphocytes % (24.0-44.0) % Monocytes % (0.0-12.0) % Eosinophils % (0.00-5.0) % Basophils % (0.0-0.4) % Absolute Granulocytes (1.4-6.9) x10^3/uL Basophils # (0-0.4) x10^3/uL Sodium (137-145) mmol/L Potassium (3.5-5.1) mmol/L Chloride (98-107) mmol/L Carbon Dioxide (22-30) mmol/L Anion Gap (5-15) MEQ/L BUN (7-17) mg/dL Creatinine (0.52-1.04) mg/dL Estimated GFR ML/MIN Glucose (74-106) mg/dL POC Glucometer (74 to 106) mg/dL Lactic Acid (0.4-2.0) Calcium (8.4-10.2) mg/dL Magnesium 2.5 H (1.6-2.3) mg/dL Total Bilirubin (0.2-1.3) mg/dL AST (14-36) U/L ALT (0-35) U/L Alkaline Phosphatase (38-126) U/L Troponin I < 0.012 (0.000-0.034) ng/mL NT-Pro-B Natriuret Pep 286 (0-900) pg/mL Serum Total Protein (6.3-8.2) g/dL Albumin (3.5-5.0) g/dL Urinalys Dipstick Clnc Urine Color (YELLOW) Urine Appearance (CLEAR) Urine pH (5-6) Ur Specific Hume (1.005-1.025) POC Urine Protein Conf (Negative) Urine Ketones (NEGATIVE) Urine Nitrite (NEGATIVE) Urine Bilirubin (NEGATIVE) Urine Urobilinogen (0-1) mg/dL Urine Leukocytes (NEGATIVE) Urine WBC (Auto) (0-5) /HPF Urine RBC (Auto) (0-2) /HPF U Epithel Cells (Auto) (FEW) /HPF Urine Bacteria (Auto) (NEGATIVE) /HPF Urine RBC (0-5) Sudhakar/ul Urine Mucus (Auto) (NEGATIVE) /HPF Ur Culture Indicated? Urine Glucose (NEGATIVE) mg/dL Urine Opiates Level (NEGATIVE) Ur Methadone (NEGATIVE) Urine Barbiturates (NEGATIVE) Ur Phencyclidine (PCP) (NEGATIVE) Urine Amphetamine (NEGATIVE) U Benzodiazepine Level (NEGATIVE) Urine Cocaine (NEGATIVE) Urine Marijuana (THC) (NEGATIVE) - Progress Progress: improved Progress Note: 06/23/22 21:52 Patient is not in any distress but does have some element of confusion, given fluid bolus. Obtain CT head which is negative. X-rays chest and right rib series negative for any acute trauma related findings. Normal white count, grossly unremarkable chemistries except for mild elevation in magnesium. Does have UTI and started on Keflex. Patient's urine drug screen is positive for methamphetamine/benzo/opiate/marijuana. She does not have any prescription of benzos and opiates. Later on questioning patient does admit using meth and getting benzos and opiates from the street/friends. I have offered her observation admission but she does not want to stay and wants to leave. Patient does not have any focal weakness. I believe her restlessness is probably secondary to methamphetamine and other drug use. Patient is counseled. Outpati ent follow-up recommended. Discussed signs symptoms of worsening needing return to ER which she seems understanding. Counseled pt/family regarding: lab results, diagnosis, need for follow-up, rad results, smoking cessation - Departure Departure Disposition: Home Clinical Impression: Polysubstance abuse, Frequent falls, Acute UTI, Muscle twitching Condition: Stable Critical Care Time: No Referrals: DOCTOR,NO FAMILY [Primary Care Provider] - Follow up/PCP as directed MEGAN SCHROEDER MD [ACTIVE STAFF] - Follow up/PCP as directed (IN 2 DAYS FOR RE EVALUATION) Instructions: Preventing Falls in Older Adults, Polysubstance Use Disorder (DC) Additional Instructions: Do not use substances and medications not prescribed to you. Do not smoke. Keep yourself well-hydrated. Follow-up with primary care for reevaluation. Return to ER for worsening of symptoms like twitching, frequent falls. Use cane/walker for ambulation to avoid another fall. Prescriptions: Cephalexin Mh 500 mg [Keflex 500 mg] 500 mg PO TID #21 cap
== END 2022-06-23 22:13 | disposition home or self-care (01) ==
LOC: ED 18:41
DX: N39.0 Urinary tract infection, site not specified (principal); F19.10 Other psychoactive substance abuse, uncomplicated; Z91.81 History of falling; R25.3 Fasciculation; M62.81 Muscle weakness (generalized); R41.0 Disorientation, unspecified; R53.83 Other fatigue; E10.9 Type 1 diabetes mellitus without complications; Z79.02 Long term (current) use of antithrombotics/antiplatelets; Z79.4 Long term (current) use of insulin; Z79.899 Other long term (current) drug therapy; Z28.310 Unvaccinated for COVID-19; Z72.0 Tobacco use
CPT/HCPCS: 36000; 36415; 70450; 71045; 71100; 80053; 80307; 81015; 82947; 83605; 83735; 83880; 84484; 85025; 87086; 96360; 99284; P9612; 87077; 87186; A9270-GY